=== PATIENT | female | born 1970 | race Caucasian/White ===

== ENCOUNTER 2018-09-05 00:45 | Outpatient (CLI) | payer MEDICAID, SELFPAY ==
[2018-09-05 12:38] LABS: Hemoglobin A1C 5.7 % (4.5-6.2)
--- NOTE | 2018-09-05 12:45 | DI.MAMMO_ITS ---
SYMPTOM/DIAGNOSIS: SCREENING, [facility], Z00.00 MAMMOGRAMS: Mammograms were interpreted according to the usual protocol including computer analysis with CAD system, tomosynthesis and C view imaging. Comparison is made with exams from [id number]. The breasts are composed of heterogeneously dense fibroglandular tissue, breast density, Category C. No suspicious masses or suspicious microcalcifications are seen. There has been no significant change. IMPRESSION: Category 1, negative mammogram. Yearly screening mammography is recommended. [facility] ASSESSMENT OF FINDINGS: Negative. Category 1. Patient will receive a letter notifying them of these results. Bi-RADS category C. The breasts are heterogeneously dense, which may obscure small masses.
[2018-09-05 15:07] LABS: Cholesterol 204 mg/dL (50-200); HDL Cholesterol 35 mg/dL (40-60); LDL CHOLESTEROL 138 mg/dL (<100); Triglyceride 165 mg/dL (30-150)
== END 2018-09-05 01:05 ==
PROVIDERS: PCP Physician Assistant Medical; Visit Provider Physician Assistant Medical
DX: Z12.31 Encounter for screening mammogram for malignant neoplasm of breast (principal); Z00.00 Encounter for general adult medical examination without abnormal findings; Z13.1 Encounter for screening for diabetes mellitus; Z13.220 Encounter for screening for lipoid disorders
CPT/HCPCS: 36415; 77063; 77067; 80061; 83721; 87338; 83036

== ENCOUNTER 2018-09-05 12:06 | Outpatient (REF) | payer MEDICAID, SELFPAY ==
[2018-09-07 12:40] LABS: Helicobacter pylori Ag, Feces Negative (NEGAT)
== END 2018-09-05 12:26 ==
LOC: LBN 12:06
PROVIDERS: PCP Physician Assistant Medical; Visit Provider Physician Assistant Medical
DX: K21.9 Gastro-esophageal reflux disease without esophagitis (principal)
CPT/HCPCS: 87338

== ENCOUNTER 2019-03-26 10:48 | Outpatient (CLI) | payer MEDICAID, SELFPAY ==
--- NOTE | 2019-03-26 10:32 | DI.RAD_ITS ---
EXAM: XR CHEST 2V PA LATERAL INDICATION: COUGH R05. COMPARISON: CHEST 2 VIEWS PA,LAT from 03/31/2015 TECHNIQUE: 2D digital imaging was performed. FINDINGS: The heart size and pulmonary vasculature are within normal limits. The lungs are clear. No pleural effusion or pneumothorax is identified. Mild DJD in the spine. IMPRESSION: No acute pulmonary process.
== END 2019-03-26 11:08 ==
PROVIDERS: PCP Physician Assistant Medical; Visit Provider Physician Assistant Medical
DX: R05 Cough (principal)
CPT/HCPCS: 71046

== ENCOUNTER 2019-12-10 01:06 | Outpatient (CLI) | payer MEDICAID, SELFPAY ==
--- NOTE | 2019-12-10 | DI.MAMMO_ITS ---
EXAM: MAMMO SCREENING CLINICAL HISTORY: SCREENING, [facility],Z00.00 TECHNIQUE: Mammograms were interpreted according to the usual protocol including computer analysis w [employer] CAD system, tomosynthesis and C-view imaging. COMPARISON: 2012 through 2018 FINDINGS: The breasts are composed of heterogeneously dense fibroglandular densities, Breast Density category C . No suspicious masses or suspicious microcalcifications are seen. No skin thickening or abnormal axillary lymph nodes are seen. There has been no significant change from prior exams. IMPRESSION: BI-RADS Category 1: Negative mammogram. Yearly screening mammography is recommended. Breast Density Category C, heterogeneously dense tissue which decreases the sensitivity of the mammog abdelrahman. The mammogram demonstrates the patient's breast tissue is dense. Dense breast tissue is very common a nd is not abnormal but dense breast tissue can make it harder to find cancer on a mammogram. Also, de nse breast tissue may increase breast cancer risk. This information about the result of the mammogram report was provided to the patient to raise their awareness. Use this report when you speak with the patient about their risks for breast cancer, which includes their family history. At that time, you may recommend additional screening tests (Ultrasound or MRI) as they might be useful based on their r isk. A negative radiographic report should not delay biopsy if a dominant or clinically suspicious mass is present. Up to ten percent of cancers are not identified on mammography. A negative report may reinforce clinical impression. Adenosis and dense breasts may obscure an underlying neoplasm. False positive reports average 6 to 10%.
== END 2019-12-10 01:26 ==
PROVIDERS: PCP Physician Assistant Medical; Visit Provider Physician Assistant Medical
DX: Z12.31 Encounter for screening mammogram for malignant neoplasm of breast (principal); R92.2 Inconclusive mammogram
CPT/HCPCS: 77063; 77067

== ENCOUNTER 2019-12-12 08:33 | Outpatient (REF) | payer MEDICAID, SELFPAY ==
[2019-12-12 22:17] LABS: Hemoglobin A1C 5.6 % (3.8-5.6)
[2019-12-12 22:34] LABS: Anion Gap 7.9 mmol/L (3-11); BUN 18 mg/dL (7-18); CO2 29.1 mmol/L (21.0-32.0); CREATININE 0.64 mg/dL (0.55-1.02); Calcium 9.2 mg/dL (8.5-10.1); Chloride 102 mmol/L (98-107); Glucose 96 mg/dL (74-106); Potassium 4.4 mmol/L (3.5-5.1); Sodium 139 mmol/L (136-145); TSH (W/Ref FT4) 1.36 uIU/mL (0.36-3.74)
== END 2019-12-12 08:53 ==
LOC: NCHCN 08:33
PROVIDERS: PCP Physician Assistant Medical; Visit Provider Physician Assistant Medical
DX: Z00.00 Encounter for general adult medical examination without abnormal findings (principal); R60.0 Localized edema; R73.03 Prediabetes
CPT/HCPCS: 80048; 83036; 84443

== ENCOUNTER 2020-03-20 16:26 | Outpatient (REF) | payer MEDICAID, SELFPAY | END 2020-03-20 16:46 | LOC: NCHCN 16:26 | PROVIDERS: PCP Physician Assistant Medical; Visit Provider Family Medicine | DX: R30.0 Dysuria (principal) | CPT/HCPCS: 87086 ==

== ENCOUNTER 2020-09-18 10:42 | Outpatient (CLI) | payer MEDICAID, SELFPAY ==
--- NOTE | 2020-10-21 08:48 | W.CARDEVENT ---
Date of service: 10/21/20 Time of Service: 08:48 Cardiac Event Recorder Referring Provider:: Tasha Indications:: Palps Cardiac Event Note: This is a 30-day event recorder order for indication of palpitations. Total recording time was 18 days. ?The patient was in normal sinus rhythm for the majority of the recording with an average heart rate of 87 bpm ?There were no episodes of ventricular tachycardia, no episodes of atrial fibrillation, no pauses greater than 3 seconds and no evidence of high degree heart block. ?There were 24 patient triggered events all associated with sinus rhythm, sinus tachycardia and occasional PACs.
== END 2020-09-18 10:43 | disposition home or self-care (01) ==
LOC: RT 10:53
PROVIDERS: PCP Physician Assistant Medical; Visit Provider Nurse Practitioner Family
DX: R00.2 Palpitations (principal)

== ENCOUNTER 2020-12-15 13:33 | Outpatient (REF) | payer MEDICAID, SELFPAY ==
--- NOTE | 2020-12-15 08:30 | PAPFT_PTH ---
PATIENT: Elizabeth Henderson LOC: [facility]#:[id number] AGE/SX: 50/F ROOM: RE12/15/[address]: Sergey Brewer : 1970 BED: DIS: 12/15/2020 SPEC #: [id number] RECD: 12/15/20 17:42 STATUS: JUICE REAlden #: [id number] APRIL: 12/15/20 08:[address]: Sergey Brewer DEPT: ON LICENSE OF [facility] Cytology RECD BY: Caitlin Nance Tissues: 1 - CX/ENDOCX FOR PAP SMEARS Procedures: PAP THIN PREP/[facility] Screening HPV DNA PROBE Comments: [id number]
== END 2020-12-15 13:34 | disposition home or self-care (01) ==
LOC: NCHCN 13:33
PROVIDERS: PCP Physician Assistant Medical; Visit Provider Physician Assistant Medical
DX: Z12.4 Encounter for screening for malignant neoplasm of cervix (principal); Z11.51 Encounter for screening for human papillomavirus (HPV)
CPT/HCPCS: 88142; 87624

== ENCOUNTER 2021-01-02 02:17 | Outpatient (CLI) | payer MEDICAID, SELFPAY ==
[2021-01-02 12:48] LABS: Abs Immature Grans 0.04 10^3/uL (0.0-0.06); Absolute Basophil Count 0.06 10^3/uL (0.0-0.2); Absolute Eosinophil Count 0.13 10^3/uL (0.0-0.7); Absolute Lymphocyte Count 3.41 10^3/uL (1.2-3.4); Absolute Monocyte Count 0.45 10^3/uL (0.1-0.8); Absolute Neutrophil Count 5.29 10^3/uL (1.2-6.7); Basophils % 0.6; Eosinophils % 1.4; HCT 38.5 % (36.0-46.0); HGB 12.6 g/dL (11.2-15.7); Immature Grans % 0.4; Lymphocytes % 36.4; MCH 28.6 pg (27.0-33.0); MCHC 32.7 % (32.0-36.0); MCV 87.5 fL (80-95); MPV 10.6 fL (8.0-11.0); Monocytes % 4.8; Neutrophils % 56.4; Nucleated RBC 0 %; Platelet Count 251 10^3/uL (130-400); RDW 12.5 % (11.7-14.6); RDW-SD 39.8 fL; WBC 9.38 10^3/uL (4.4-10.8)
[2021-01-02 13:02] LABS: Hemoglobin A1C 5.6 % (<5.7)
[2021-01-02 14:47] LABS: Calculated LDL 165 mg/dL (<100); Cholesterol 240 mg/dL (<200); HDL Cholesterol 46 mg/dL (40-60); Triglyceride 148 mg/dL (<150)
== END 2021-01-02 02:18 | disposition home or self-care (01) ==
LOC: LBO 02:17
PROVIDERS: PCP Physician Assistant Medical; Visit Provider Physician Assistant Medical
DX: D64.9 Anemia, unspecified (principal); R06.02 Shortness of breath; R07.9 Chest pain, unspecified; R00.2 Palpitations; R79.89 Other specified abnormal findings of blood chemistry
CPT/HCPCS: 36415; 80061; 83036; 85025

== ENCOUNTER 2021-01-02 04:04 | Outpatient (CLI) | payer MEDICAID, SELFPAY ==
--- NOTE | 2021-01-02 | DI.MAMMO_ITS ---
Exam(s) MAMMO SCREENING EXAM: MAMMO SCREENING CLINICAL HISTORY: SCREENING, [facility],Z00.00 TECHNIQUE: Bilateral full field digital CC and MLO mammographic images were obtained with 3D tomosyn thesis and utilizing computer aided detection (CAD). COMPARISON: Available for comparison. FINDINGS: Masses/Architectural Distortion: None seen. Microcalcifications: No suspicious pleomorphic-type are seen. Skin Thickening/Nipple Retraction: None. IMPRESSION: 1. No significant interval change with no specific features of malignancy noted. 2. Unless there is more urgent need, screening mammography is recommended, as per [place] [employer] guidelines. BI-RADS Category 1 - Negative Breast Density - Category C - Heterogeneously dense Breast density category C or D implies that the patient has dense breast tissue. Dense breast tissue is very common and is not abnormal but dense breast tissue can make it harder to find cancer on a ma mmogram. Also, dense breast tissue may increase their breast cancer risk. This information about the result of the mammogram report was provided to the patient to raise their awareness. Use this report when you speak with the patient about their risks for breast cancer, which includes their family hist ory. At that time, you may recommend for more screening tests (Ultrasound or MRI) as they might be us eful based on their risk. A negative radiographic report should not delay biopsy if a dominant or clinically suspicious mass is present. Up to ten percent of cancers are not identified on mammography. A negative report may reinforce clinical impression. Adenosis and dense breasts may obscure an underlying neoplasm. False positive reports average 6 to 10%. Patient will receive a letter notifying them of these results.
== END 2021-01-02 04:24 ==
PROVIDERS: PCP Physician Assistant Medical; Visit Provider Physician Assistant Medical
DX: Z12.31 Encounter for screening mammogram for malignant neoplasm of breast (principal)
CPT/HCPCS: 77063; 77067

== ENCOUNTER 2021-04-08 09:59 | Outpatient (REF) | payer MEDICAID, SELFPAY ==
[2021-04-11 11:05] LABS: COVID-19 RT-PCR UVMMC Result Negative (Negative)
== END 2021-04-08 10:00 | disposition home or self-care (01) ==
LOC: NCHCN 09:59
PROVIDERS: PCP Physician Assistant Medical; Visit Provider Physician Assistant Medical
DX: Z20.822 Contact with and (suspected) exposure to COVID-19 (principal); R05.8 Other specified cough
CPT/HCPCS: U0003

== ENCOUNTER 2021-10-17 13:53 | Emergency (ER) | payer BC, SELFPAY ==
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
[2021-10-17 13:57] VITALS: BP 139/87; PULSE 105; TEMP 36.9; O2SAT 95
[2021-10-17] MEDS: Silver sulfaDIAZINE 1% 25 GM TUBE TP (14:23)
[2021-10-17] MEDS: Ibuprofen 600 MG TAB PO (14:42)
[2021-10-17] MEDS: Acetaminophen 500 MG TAB 1000 MG PO (14:42)
== END 2021-10-17 14:33 | disposition home or self-care (01) ==
PROVIDERS: Emergency Provider Physician Assistant; PCP Physician Assistant Medical
DX: T21.22XA Burn of second degree of abdominal wall, initial encounter (principal); X10.2XXA Contact with fats and cooking oils, initial encounter
CPT/HCPCS: 99282

== ENCOUNTER 2021-11-23 15:03 | Outpatient (REF) | payer BC, MEDICAID, SELFPAY | END 2021-11-23 15:04 | disposition home or self-care (01) | LOC: NCHCN 15:03 | PROVIDERS: PCP Physician Assistant Medical; Visit Provider Nurse Practitioner Family | DX: J02.9 Acute pharyngitis, unspecified (principal); U07.1 COVID-19 | CPT/HCPCS: 87081 ==

== ENCOUNTER → 2022-01-05 01:44 | Outpatient (CLI) | payer BC, MEDICAID, SELFPAY ==
--- NOTE | 2022-01-05 | DI.MAMMO_ITS ---
Exam(s) MAMMO SCREENING EXAM: MAMMO SCREENING CLINICAL HISTORY: SCREENING FOR BREAST CANCER Z12.39 TECHNIQUE: Mammograms were interpreted according to the usual protocol including computer analysis w [employer] CAD system, tomosynthesis and C-view imaging. COMPARISON: FINDINGS: The breasts are heterogeneously dense. No dominant mass or clumped microcalcification is identified in either breast. The current examination is compared with multiple previous examinations including December 2020 and there is question of interval increased prominence of a focal area of asymmetric dens ity projected in the upper outer quadrant of left breast on CC and MLO views. Additional mammographi c views of this area are requested for further evaluation to exclude a new mass. No other significant change seen. Additional mammographic view should include spot compression views in CC and MLO projections. IMPRESSION: Additional mammographic views of the left breast requested as described above. Breast ultrasound may be indicated as well depending on the results of the additional mammographic views. BI-RADS Category 0 - Assessment Incomplete: Need additional imaging evaluation Breast Density - Category C - Heterogeneously dense
== END ==
PROVIDERS: PCP Physician Assistant Medical; Visit Provider Physician Assistant Medical
DX: Z12.31 Encounter for screening mammogram for malignant neoplasm of breast (principal); R92.8 Other abnormal and inconclusive findings on diagnostic imaging of breast
CPT/HCPCS: 77063; 77067

== ENCOUNTER → 2022-01-08 00:19 | Outpatient (CLI) | payer BC, MEDICAID, SELFPAY ==
--- NOTE | 2022-01-08 | DI.US_ITS ---
Exam(s) MAMMO SCREEN CALL BACK UNI US BREAST LT COMPLETE EXAM: MAMMO SCREEN CALL BACK UNI-LEFT AND COMPLETE LEFT BREAST ULTRASOUND CLINICAL HISTORY: F/U MAMMO, ? INCREASED PROMINENCE ASYMMETRIC DENSITY. TECHNIQUE: Unilateral spot mammographic images obtained with 3D tomosynthesisand utilizing computer aided detection (CAD). . Complete LEFT breast Ultrasound was also performed, including all 4 quadrants, the retroareolar regio n, and the ipsilateral axilla. COMPARISON: Prior mammograms were reviewed. This additional imaging was performed due to findings described on the recent screening mammogram of 01/05/2022. FINDINGS: DIAGNOSTIC LEFT BREAST MAMMOGRAM: Additional mammographic views performed todayrender this area less concerning. COMPLETE LEFT BREAST ULTRASOUND: Ultrasound performed today reveals no evidence of solid or significant cystic lesions in all 4 quadra nts.. Retroareolar region is negative. No significant findings in the left axilla. No adenopathy. IMPRESSION: No radiographic evidence of malignancy in the left breast.. Negative complete left breast ultrasound. Appropriate follow-up is to keep this patient on a yearly mammogram schedule, with earlier imaging i f a self detected breast change was noted.. The patient was informed of these findings and recommendations by myself prior to leaving the departm ent today. BI-RADS Category 2 - Benign Findings Breast Density - Category C - Heterogeneously dense Breast density Category C or D implies that the patient has dense breast tissue. Dense breast tissue can make it harder to find cancer on a mammogram. Dense breast tissue is also associated with an incr eased risk of breast cancer. This information about the result of the mammogram report was provided to the patient to raise their awareness. Use this report when you speak with the patient about their risks for breast cancer, which includes their family history. At that time, you may recommend additional screening tests (Ultrasoun d or MRI) as these tests may add significant information. A negative radiographic report should not delay biopsy if a dominant or clinically suspicious mass is present. Up to ten percent of cancers are not identified on mammography. A negative report may reinforce clinical impression. Adenosis and dense breasts may obscure an underlying neoplasm. False positive reports average 6 to 10%. Patient will receive a letter notifying them of these results.
--- OUTSIDE RECORDS SUMMARY | 2022-01-08 00:21 | XMS_ITS | Encounter Summary ---
:1970 [place] [address] Care Team Providers Name Role Phone None Primary Care Provider Unavailable Encounter Details Date Type Department Care Team Description 08/23/2018 Ancillary Procedure Radiology Library at Oliver Cope MD [facility] [place] [address] [place] [address] [phone] (Wo rk) Social History Tobacco Use Types Packs/Day Years Used Date Never Assessed Sex Assigned at Date Recorded Not on file documented as of this encounter Plan of Treatment Not on filedocumented as of this encounter Procedures Procedure Name Priority Date/Time Associated Diagnosis Comme nts FILM LIBRARY Routine 08/23/2018 12:00 AM Results for this STORAGE ONLY CT EDT procedure ar e in ABDOMEN AND PELVIS the resul ts section. documented in this encounter Results Film Library- Storage Only CT Abdomen & Pelvis (08/23/2018 12:00 AM EDT) Specimen (Source) Anatomical Location Collection Method / Collectio n Time Received Time / Laterality Volume Narrative RAD - 09/11/2018 1:30 PM EDT This exam is auto-finalizing. It's purpo se is for storage only. Oliver Cope MD IMG FILM LIBRARY ORDERABLES Performing Organization Address City/State/ZIP Code Phon e Number RAD [place], [place] documented in this encounter Visit Diagnoses Not on filedocumented in this encounter Care Teams Cork Floor Installer Relationship Specialty Start Date End Date None PCP - General 04/07/10 08/27/18 None documented as of this encounter
--- OUTSIDE RECORDS SUMMARY | 2022-01-08 00:21 | XMS_ITS | Encounter Summary ---
:1970 Author Organization [facility] [place] [address] Care Team Providers Name Role Phone Sergey Brewer Primary Care Provider Encounter Details Date Type Department Care Team Description 11/21/2018 Telephone General Surgery at [facility] [place] [address] Social History Tobacco Use Types Packs/Day Years Used Date Never Smoker Smokeless Tobacco: Never Used Alcohol Use Standard Drinks/Week Comments Not Currently 0 (1 standard drink = 0.6 oz pure alcoho l) Sex Assigned at Date Recorded Not on file documented as of this encounter Miscellaneous Notes Telephone Encounter - Alecia Stroud - 11/21/2018 4:08 PM EDT At the request of Dr. Cope, I contacted Ms. Henderson to schedule her follow up visit within 4 weeksfrom the EGD performed on 11/17/18. She has accepted an appointment on 12/15/18 at 4:45p but did requestthat I ask Dr. Cope to contact her prior to his upcoming time away to discuss the EGD path results.Ms. Henderson states that she was a bit out of it when Dr. Cope spoke with her on Tuesday and she does not quite recall what he had said to her. Emailed Dr. Cope informing him of the above. documented in this encounter Plan of Treatment Not on filedocumented as of this encounter Visit Diagnoses Not on filedocumented in this encounter Care Teams Big Data Software Engineer Relationship Specialty Start Date End Date Sergey Brewer PA PCP - General Family Medicine 08/28/18 01/01/20 [address] [place] [address] documented as of this encounter
--- OUTSIDE RECORDS SUMMARY | 2022-01-08 00:21 | XMS_ITS | Encounter Summary ---
:1970 Author Organization [facility] [place] [address] Care Team Providers Name Role Phone Sergey Brewer Primary Care Provider Encounter Details Date Type Department Care Team Description 09/28/2018 Telephone General Surgery at [facility] [place] [address] Social History Tobacco Use Types Packs/Day Years Used Date Never Smoker Sex Assigned at Date Recorded Not on file documented as of this encounter Miscellaneous Notes Telephone Encounter - Alecia Stroud - 09/28/2018 11:32 AM EDT Called and left a message informing Elizabeth that I have rescheduled her EGD with Dr. Cope from November 24 7:30a arrival time to November 17 7:30a arrival time as Dr. Cope is going to be awayJuly 12th. Requested she call us back to confirm receipt of this message. documented in this encounter Plan of Treatment Not on filedocumented as of this encounter Visit Diagnoses Not on filedocumented in this encounter Care Teams Operating Room Scheduler Relationship Specialty Start Date End Date Sergey Brewer PA PCP - General Family Medicine 08/28/18 01/01/20 [address] [place] [address] documented as of this encounter
--- OUTSIDE RECORDS SUMMARY | 2022-01-08 00:21 | XMS_ITS | Encounter Summary ---
:1970 Author Organization [facility] [place] [address] Care Team Providers Name Role Phone Sergey Brewer Primary Care Provider Reason for Visit Reason Comments Follow-up Consultation (Routine) - Specialty Diagnoses / Procedures Referred By Contact Refer red To Contact General Surgery Diagnoses GERD Ventral hernia Sergey Brewer, [facility] [facility] [address] [place] [address] [place] [address] Fax: Referral ID Status Reason Start Date Expiration Date Visits V isits Requested Authorized [id number] Consult, 08/28/2018 08/28/2019 6 [facility] Encounter Details Date Type Department Care Team Description 09/18/2018 Office Visit General Surgery at Oliver Cope MD Chronic epigastric [facility] pain [facility] [address] [facility] [place], [place] [id number] [phone] Social History Tobacco Use Types Packs/Day Years Used Date Never Smoker Sex Assigned at Date Recorded Not on file documented as of this encounter Last Filed Vital Signs Vital Sign Reading Time Taken Comments Blood Pressure 126/62 09/18/2018 10:55 AM EDT Pulse - - Temperature - - Respiratory Rate - - Oxygen Saturation - - Inhaled Oxygen Concentration - - Weight 112.5 kg (248 lb) 09/18/2018 10:55 AM EDT Height - - Body Mass Index - - documented in this encounter Progress Notes Glen Anaya MD - 09/18/2018 11:00 AM EDT Elizabeth Henderson is a 48 y.o. female who presents to clinic today for evaluation of intermittent epigastric pain, reflux, and ventral hernia. Ms. Henderson reports that she has had episodes of epigastricpain for the past 2-3 years. These episodes are often accompanied by acid reflux. She was seen in her local ED in May and twice in the past month. She was initially given ranitidine which helped. She had multiple side effects from this medication that limited her use. She has been on a bland diet.She was seen in the ED last week for an episode of this pain and started on pantoprazole. She reports that she has had no issues since starting this medication and feels generally much better. She underwent H pylori testing that was negative. She has never had endoscopy. She denies current reflux or pain. She denies fevers, chills, SOB, chest pains, nausea, vomiting, constipation, diarrhea, melena, or hematochezia. Past Medical History: Diagnosis Date ??? GERD (gastroesophageal reflux disease) Past Surgical History: Procedure Laterality Date ??? CHOLECYSTECTOMY, LAPAROSCOPIC ??? TOTAL KNEE ARTHROPLASTY Bilateral ??? TUBAL LIGATION Medications <Not Reviewed> Medication Sig Taking? pantoprazole (PROTONIX) 40 mg Tablet, Delayed Release (E.C.) Allergies Allergen Reactions ??? Codeine Shortness Of Breath ??? Morphine Shortness Of Breath ??? Amoxicillin Rash ??? Demerol [Meperidine] Rash ??? Keflex [Cephalexin] Rash ??? Nexium [Esomeprazole Magnesium] Other (See Comments) Tongue gets Ezra ??? Ranitidine Other (See Comments) tongue gets tingly Social History Tobacco Use ??? Smoking status: Never Smoker Substance Use Topics ??? Alcohol use: Not on file ??? Drug use: Never History reviewed. No pertinent family history. ROS:Pertinent items are noted in HPI. On physical examination today, BP 126/62 Wt 112.5 kg (248 lb) There is no height or weight on fileto calculate BMI. General appearance: alert, appears stated age, cooperative and no distress Head: Normocephalic, without obvious abnormality, atraumatic Lungs: clear to auscultation bilaterally Heart: regular rate and rhythm, S1, S2 normal, no murmur, click, rub or gallop Abdomen: soft, non-tender; bowel sounds normal; no masses, no organomegaly and , small diastasis without discrete hernia Extremities: no edema, redness or tenderness in the calves or thighs and warm, well-perfused Skin: Skin color, texture, turgor normal. No rashes or lesions Neurologic: Grossly normal CT Abdomen pelvis 08/23/18: reviewed, no evidence of hernia or discrete abnormality to explain her symptoms. Assessment and Plan: Elizabeth Henderson is a 48 y.o. female. with a history of GERD who presents with intermittent severe epigastric pain. She has no clear hernia on imaging or exam to explain her symptoms. She primarily described incompletely controlled episodes of reflux which has responded well to recently started PPI. We discussed at length the options for ongoing work up and management of her symptoms. She has been restricting her diet to an extreme that may not be sustainable. Recommended keepinga journal of what foods are problematic as she slowly expands her diet. She is tolerating pantoprazole better than ranitidine. Recommended taking this medication regularly for 6-8 weeks to measure response to treatment. We discussed the role of diagnostic EGD to evaluate for any inflammation or ulcer disease (although less likely) to explain her symptoms. She would like to pursue EGD and was agreeable to the plan for ongoing PPI in the interim. She will call with and questions or concerns in the interim. Patient seen and examined by me. I agree with above note as written by Dr. Anaya. Will arrange EGD diagnostic in the near future. Ms. Henderson is in agreement with this plan. Oliver Cope MD #[id number] documented in this encounter Plan of Treatment Not on filedocumented as of this encounter Visit Diagnoses Diagnosis Chronic epigastric pain Abdominal pain, epigastric documented in this encounter Care Teams Water Pump Servicer Relationship Specialty Start Date End Date Sergey Brewer PA PCP - General Family Medicine 08/28/18 01/01/20 [address] [place] [address] documented as of this encounter
--- OUTSIDE RECORDS SUMMARY | 2022-01-08 00:21 | XMS_ITS | Encounter Summary ---
:1970 Author Organization [facility] Address [address] [place] [address] Care Team Providers Name Role Phone Unknown, Provider Primary Care Provider Encounter Details Date Type Department Care Team Description 10/03/2013 Hospital Encounter [facility] - S Unknown, Pro Sam high MD [address] [facility] [phone] [place] [address] (Work) [phone] Social History Tobacco Use Types Packs/Day Years Used Date Never Assessed Sex Assigned at Date Recorded Not on file documented as of this encounter Discharge Disposition Disposition Code Departure Means Destination Home or Self Penitentiary documented in this encounter Plan of Treatment Not on filedocumented as of this encounter Visit Diagnoses Not on filedocumented in this encounter Care Teams Airline Attendant Relationship Specialty Start Date End Date Unknown, Provider, PCP - General 09/05/09 10/17/13 documented as of this encounter
--- OUTSIDE RECORDS SUMMARY | 2022-01-08 00:21 | XMS_ITS | Encounter Summary ---
:1970 Author Organization [facility] Address [address] [place] [address] Care Team Providers Name Role Phone Sergey Brewer PA-C Primary Care Provider [phone] Encounter Details Date Type Department Care Team Description 04/09/2021 Lab [facility] Outr Resulting Lab, Pathology & Laboratory Provider [facility] [address] [place], [place] [id number] Social History Tobacco Use Types Packs/Day Years Used Date Never Assessed Sex Assigned at Date Recorded Not on file documented as of this encounter Plan of Treatment Not on filedocumented as of this encounter Procedures Procedure Name Priority Date/Time Associated Diagnosis Comme nts COVID-19 TEST [facility] Today 04/08/2021 9:35 EST LAB PCR COVID-19 TESTING Routine 04/08/2021 9:35 EST Resu lts for this procedure are i n the results section. documented in this encounter Results COVID-19 TEST [facility] LAB PCR (04/08/2021 9:35 EST) Specimen Swab Performing Organization Address City/State/ZIP Code Phon e Number [facility] [address] [place] [address] SERVICES COVID-19 TESTING (04/08/2021 9:35 EST) COVID-19 rt-PCR Negative Negative [facility] Result Comment: [facility] This test has not been FDA c leared or approved. This test has been authorized by FDA under an EUA for use by authorized laboratories. This test has been authorized only for detection of nucleic acid fro SERVICES m 2019-nCoV, not for any oth er viruses or pathogens. This test is only authorized for the duration of the declaration that circumstances exist justifying the authorization of emergency use of in vitro d iagnostic tests for detectio n and/or diagnosis of 2019-nCoV under section 564(b)(1) of Act, 21 U.S.C ?? 360bbb-3(b) (1), unless the authorization is terminated or revoked sooner. Negative results do not prec lude 2019-nCoV infection and should not be used as the sole basis for treatment or other patient management decisions. Negative results must be combined with clinical observa tions, patient history, and epidemiological informatio n. Testing was performed using the fer SARS-CoV-2 assay ([employer] on the Fer 6800 System Performing Lab Fer [address] [facility] Lab [facility] SERVICES Specimen Swab Performing Organization Address City/State/ZIP Code Phon e Number [facility] [address] [place] [address] SERVICES documented in this encounter Visit Diagnoses Not on filedocumented in this encounter Care Teams Crab Meat Processor Relationship Specialty Start Date End Date Sergey Brewer PA-C PCP - General 06/10/[address] [place] [phone] documented as of this encounter
--- OUTSIDE RECORDS SUMMARY | 2022-01-08 00:21 | XMS_ITS | Encounter Summary ---
:1970 Author Organization [facility] Address [address] [place] [address] Care Team Providers Name Role Phone Unavailable Primary Care Provider Unavailable Encounter Details Date Type Department Care Team Description 06/04/[address] [facility] Anne Brewer, Laboratory Services - Reba MARQUES [address] [address] [place] [address] [phone] Social History Tobacco Use Types Packs/Day Years Used Date Never Assessed Sex Assigned at Date Recorded Not on file documented as of this encounter Plan of Treatment Not on filedocumented as of this encounter Procedures Procedure Name Priority Date/Time Associated Diagnosis [facility]me [facility] CY[facility]Y Routine 06/04/2009 0:00 EST Results for this procedure are i n the results section . documented in this encounter Results CYTOPATHOLOGY (06/04/2009 0:00 EST) Pathology Report: CYTOPATHOLOGY REPORT ? [facility] ? LAB Reports generated via electr onic interface contain original data; ? however they are lacking the format of the original report. ? Caution should be taken when reading/interpreting unformatted reports. ? Name: ? VERITO, ELIZABETH ? Accession #: ? [id number] ? : ? 1970 (Age: 39) ??F ?Collect Date: ? 06/04/2009 ? Location: ? [facility] ? Receive Date: ? 06/05/2009 ? Provider: ?ANNE REDDING PA ? Copy to: ? Specimen/Source: ? Pap Test, Cervix/Endocervix, ThinPrep Imaging System ? with manual evaluation ? Last Menstrual Period: ? 1/8/10 ? Other: ? HPVA - HPV testing requested if ASC-US on the current ThinPrep Pap test. ? SPECIMEN ADEQUACY ? Satisfactory for Eval uation ? - transformation zone compon ent present ? GENERAL CATEGORIZATION ? Negative for Intraepi thelial Lesion or Malignancy ? Document reviewed and electr onically signed by: ? Melany V[place],CT(ASCP) ? Report Date: ??01/22/ 2010 12:55 ? End of Report ? Specimen Performing Organization Address City/State/ZIP Code Phon e Number [facility] [address] [place] [address] SERVICES [facility] [address] [place] [address] documented in this encounter Visit Diagnoses Not on filedocumented in this encounter
--- OUTSIDE RECORDS SUMMARY | 2022-01-08 00:21 | XMS_ITS | Encounter Summary ---
:1970 [place] [address] Care Team Providers Name Role Phone Sergey Brewer Primary Care Provider Encounter Details Date Type Department Care Team Description 11/17/2018 [place] [facility] [place] Cabrera MD EGD WITH BIOPSY ([facility] [address]) [place] [address] [address] [address] [phone] GENERAL SURGERY [place], [place] [address] Social History Tobacco Use Types Packs/Day Years Used Date Never Smoker Smokeless Tobacco: Never Used Alcohol Use Standard Drinks/Week Comments Not Currently 0 (1 standard drink = 0.6 oz pure alcoho l) Sex Assigned at Date Recorded Not on file documented as of this encounter Last Filed Vital Signs Vital Sign Reading Time Taken Comments Blood Pressure 138/80 11/17/2018 8:50 AM EDT Pulse 81 11/17/2018 8:54 AM EDT Temperature 36.8 ??C (98.2 ??F) 11/17/2018 7:41 AM EDT Respiratory Rate 11 11/17/2018 8:54 AM EDT Oxygen Saturation 100% 11/17/2018 8:54 AM EDT Inhaled Oxygen Concentration - - Weight 106.6 kg (235 lb) 11/17/2018 7:41 AM EDT Height 162.6 cm (5' 4) 11/17/2018 7:41 AM EDT Body Mass Index 40.34 11/17/2018 7:41 AM EDT documented in this encounter Discharge Instructions Discharge InstructionsJeinnings, Joy L, RN - 11/17/2018 9:03 AM EDT Please call [phone] before 8pm Mon-Fri with problems, questions or concerns. If you call after 8pm or on weekends, call the Hospital at [phone] and ask to speak to the Presentation Manager child welfare consultant and the asphalt still operator will contact that person for you. AttachmentsThe following attachments cannot be sent through Care Everywhere.EGD (Upper Endoscopy): Post-op (Kazakh)documented in this encounter Medications at Time of Discharge Medication Sig Dispensed Refills Start Date End Date pantoprazole (PROTONIX) 40 mg Tablet, 0 09/13/2018 12/15/2018 Delayed Release (E.C.) documented as of this encounter H&P Notes Oliver Cabrera MD - 11/17/2018 8:24 AM EDT Patient Name: Elizabeth Henderson Patient Age: 48 y.o. Birthdate: 1970 Admit date: 11/17/2018 Attending Physician: Oliver Cabrera MD Ms. Henderson is here today for planned EGd. She continues to feel improved now taking PPI therapy PRN. On exam, BP 129/78 Pulse 65 Temp 36.8 ??C (98.2 ??F) (Oral) Resp 16 Ht 162.6 cm (5' 4) Wt106.6 kg (235 lb) LMP 10/23/2018 SpO2 99% BMI 40.34 kg/m?? Lungs are clear. Heart is regular. Assessment/Plan: Ms. Henderson is stable for our planned EGd procedure. Consent is obtained. documented in this encounter Plan of Treatment Not on filedocumented as of this encounter Procedures Procedure Name Priority Date/Time Associated Diagnosis Comme nts SPECIMEN TO Routine 11/17/2018 8:53 AM Results f or this PATHOLOGY EDT procedure are i n the results section. SPECIMEN TO Routine 11/17/2018 8:53 AM Results f or this PATHOLOGY EDT procedure are i n the results section. SURGICAL PATHOLOGY Routine 11/17/2018 8:52 AM Res ults for this REPORT EDT procedure are i n the results section. EGD WITH BIOPSY 11/17/2018 8:30 AM epigastric (WRVU 2.49) EDT pain/reflux UPPER GI ENDOSCOPY Routine 11/17/2018 7:36 AM Res ults for this EDT procedure are i n the results section. documented in this encounter Results Specimen to Pathology (11/17/2018 8:53 AM EDT) Specimen Anatomical Collection Method Collection Time Receive d Time (Source) Location / / Volume Laterality AP Specimen 11/17/2018 8:53 AM 9 8:53 EDT AM EDT Narrative [facility] [place] - 11/17/2018 8:53 AM EDT Specimen requisition ordered. ??Separate Pathology report to follow Oliver Cabrera MD PATHOLOGY/CYTOLOGY ORDERABLE S Performing Organization Address [facility]/ZIP [place] [facility] [place] [place] Phon e Number [address] Specimen to Pathology (11/17/2018 8:53 AM EDT) Specimen Anatomical Collection Method Collection Time Receive d Time (Source) Location / / Volume Laterality AP Specimen 11/17/2018 8:53 AM 9 8:53 EDT AM EDT Narrative [facility] [place] - 11/17/2018 8:53 AM EDT Specimen requisition ordered. ??Separate Pathology report to follow Oliver Cabrera MD PATHOLOGY/CYTOLOGY ORDERABLE S Performing Organization Address [facility] [place] [address] Surgical Pathology Report (11/17/2018 8:52 AM EDT) Component Value Ref Test Analysis Performed At [facility] gist Range Method Time Signature Surgical [id number] ? Location: 4T; EA06; A [facility] Report The signing pathologist has (i) examined the relevant preparation(s) for the MEMORIAL specimen(s) and (ii) rendered or confirmed the diagnosis(es) . HOSPITAL LABORATORY . ?Surgic al Pathology DIAGNOSIS A - Gastric antrum, biopsy: Gastric antral gland mucosa with mild nonspecific reactive g astropathy. No H. pylori-like microorganism is seen. B - Z-line, biopsy: Squamous esophageal and cardiac mucosa with chronic nonspeci fic gastritis. No goblet cell metaplasia is seen. Electronically signed by: ??Deedee Zamorano MD Verified: ??11/20/2018 ?Pathologist Performed at: ??-[facility] [place] Dept. [place], [place], [place] CLINICAL INFORMATION Specimen Submitted: A - Gastric antrum biopsy B - Z-line biopsies, rule out Fitch's esophagus Clinical History and Diagnosis: 48-year-old female, history of epigastric abdominal pa in; rule out Fitch's esophagus SPECIMEN PROCESSING A - Labeled/Fixative: Gastric antrum, formalin. Quantity/Size: Single, 0.4 cm. Tissue Description: Soft, red tissue. Sections/Processing: Submitted en toto ??in 1 cassette labeled A1. B - Labeled/Fixative: Z line biopsies, formalin. Quantity/Size: Single, 0.3 cm. Tissue Description: Soft, yellow tissue. Sections/Processing: Submitted en toto ??in 1 cassette labeled B1. ??ejr Specimen (Source) Anatomical Collection Method Collection Time Re ceived Time Location / / Volume Laterality 11/17/2018 8:52 AM EDT Oliver Cabrera MD PATHOLOGY/CYTOLOGY ORDERABLE S Performing Organization Address City/State/[place] [address] [facility] [address] UPPER GI ENDOSCOPY (11/17/2018 7:36 AM EDT) Component Value Ref Test Analysis Performed At [facility] gist Range Method Time Signature UPPER GI [facility] ENDOSCOPY Endoscopy Procedure Date: 11/17/2018 7:36 AM ? Patient Name: Elizabeth Henderson ? Date of : 1970 ? Age: 48 ? Order #: [id number] ? Instrument Name: [id number] (RUDY) ? Procedure: ? Upper GI endoscopy Indications: ? Epigastric abdominal pain, Heartbur n Providers: ? Oliver Cabrera MD, Katya Connor, ? Sen Palumbo, Snack Bar Cook Referring : ?CAMI Saab Medicines: ? Midazolam 4 mg IV, Fentanyl 100 ? micrograms IV Complications: ? No immediate complications. Estimate d ? blood loss: Minimal. Procedure: ? Pre-Anesthesia Assessment: ? - Prior to the procedure, a H istory ? and Physical was performed, a nd ? patient medications and aller gies ? were reviewed. The patient is ? competent. The risks and bene fits of ? the procedure and the sedatio n ? options and risks were discus sed with ? the patient. All questions we re ? answered and informed consent was ? obtained. Patient identificat ion and ? proposed procedure were verif ied by ? the physician in the pre-proc edure ? area. Mental Status Examinati on: ? alert and oriented. Airway ? Examination: Mallampati Class I ? (tonsillar pillars visualized ). ? Respiratory Examination: ulisses r to ? auscultation. CV Examination: normal. ? Prophylactic Antibiotics: The patient ? does not require prophylactic ? antibiotics. Prior Anticoagul ants: ? The patient has taken no prev ious ? anticoagulant or antiplatelet agents. ? ASA Grade Assessment: II - A patient ? with mild systemic disease. A fter ? reviewing the risks and benef its, the ? patient was deemed in satisfa ctory ? condition to undergo the proc edure. ? The anesthesia plan was to us e ? moderate sedation / analgesia ? (conscious sedation). Immedia tely ? prior to administration of ? medications, the patient was ? re-assessed for adequacy to r eceive ? sedatives. The heart rate, ? respiratory rate, oxygen satu rations, ? blood pressure, adequacy of p ulmonary ? ventilation, and response to care ? were monitored throughout the ? procedure. The physical statu s of the ? patient was re-assessed after the ? procedure. ? The procedure, indications, b enefits, ? risks and alternatives were e xplained ? to the patient. Specifically ? discussed were potential ? complications including, but not ? limited to, bleeding, perfora tion, ? infection, missing a cancer, and ? adverse medication reactions. The ? Endoscope was introduced thro ugh the ? mouth, and advanced to the se cond ? part of duodenum. The patient ? tolerated the procedure well. The ? upper GI endoscopy was accomp lished ? without difficulty. The patie nt ? tolerated the procedure well. ? Findings: ? The Z-line was irregular and was found 39 cm from the ? incisors. Biopsies were taken with a cold forceps for ? histology. ? There was a small lipoma, 10 mm in diameter, in the ? gastric antrum. Biopsies were taken with a cold ? forceps for histology. Estimated blood loss was ? minimal. ? Moderate Sedation: ? Moderate (conscious) sedation was administered by the ? endoscopy nurse and supervised by the endoscopist. ? The following parameters were monitored: oxygen ? saturation, heart rate, blood pressure, and response ? to care. Impression: ?- Z-line irregular, 39 cm from the ? incisors. Biopsied. ? - Gastric lipoma. Biopsied. Recommendation: ?- Discharge patient to home ? (ambulatory). ? - Patient has a contact numbe r ? available for emergencies. Th e signs ? and symptoms of potential del ayed ? complications were discussed with the ? patient. Return to normal act ivities ? tomorrow. Written discharge ? instructions were provided to the ? patient. ? Procedure Code(s): ?? --- Professional --- ? 24455, Esophagogastroduodenos copy, ? flexible, transoral; with bio psy, ? single or multiple Diagnosis Code(s): ?? --- Professional --- ? K22.8, Other specified diseas es of ? esophagus ? D17.5, Benign lipomatous neop lasm of ? intra-abdominal organs ? R10.13, Epigastric pain ? R12, Heartburn ? --- Technical --- ? K22.8, Other specified diseas es of ? esophagus ? D17.5, Benign lipomatous neop lasm of ? intra-abdominal organs ? R10.13, Epigastric pain ? R12, Heartburn CPT copyright 2017 [employer]. All rights reserved. The codes documented in this report are preliminary and upon medical biller/coder review may be revised to meet current compliance requirements. Attending Participation: ? I personally performed the entire procedure. ? OLIVER CABRERA MD Oliver Cabrera MD 11/17/2018 9:00:26 AM This report has been signed electronically. Number of Addenda: 0 Note Initiated On: 11/17/2018 7:36 AM Specimen (Source) Anatomical Collection Method Collection Time Re ceived Time Location / / Volume Laterality 11/17/2018 7:36 AM EDT Unknown GENERAL SURGICAL ORDERABLES Performing Organization Address City/State/ZIP Code Phon e Number [facility] documented in this encounter Visit Diagnoses Not on filedocumented in this encounter Administered Medications Inactive Administered Medications - up to 3 most recent administrations Medication Order MAR Action Action Date Dose Rate Site benzocaine (TOPEX) 20 % topical Given 11/17/2018 8:36 AM EDT 1 e ach aerosol ONCE PRN, Starting on Tue11/17/18 at 0836, Until Tue11/17/18 at 1150, Intra-Operative (Intra-Procedure) fentaNYL 50 mcg/mL multi-dose injection Given 11/17/2018 8:38 AM EDT 50 mcg ONCE PRN, Starting on Tue11/17/18 at 0835, Until Tue11/17/18 at 1150, Intra-Operative (Intra-Procedure), Routine Given 11/17/2018 8:35 AM EDT 50 mcg lactated ringers infusion New Bag 11/17/2018 7:50 AM EDT 100 mL/hr 100 mL/hr 100 mL/hr, Intravenous, CONTINUOUS, Starting on Tue11/17/18 at 0800, Until Tue11/17/18 at 0937, Endoscopy (Day of Procedure) midazolam (PF) (VERSED) multi-dose injec tion Given 11/17/2018 8:44 AM EDT 1 mg ONCE PRN, Starting on Tue11/17/18 at 0835, Until Tue11/17/18 at 1150, Intra-Operative (Intra-Procedure), Routine Given 11/17/2018 8:41 AM EDT 1 mg Given 11/17/2018 8:38 AM EDT 1 mg documented in this encounter Active and Recently Administered Medications Times are shown in EDT. Continuous Medication Order 11/15/2018 11/16/2018 11/17/2018 lactated ringers infusion (CANCELED) 0750 (New Bag - Provider: Joy Morrison RN) 100 mL/hr, at 100 mL/hr, Intravenous, CO NTINUOUS, Starting Tue11/17/18 at 0800, Until Tue11/17/18 at 0937, Endo (Day of Procedure) PRN Medication Order 11/15/2018 11/16/2018 11/17/2018 benzocaine (TOPEX) 20 % topical aerosol (CANCELED) 0836 (Given - Provider: Oliver Cabrera MD) ONCE PRN, Starting Tue11/17/18 at 0836, Intra-Operative (Intra-Pr ocedure) fentaNYL 50 mcg/mL multi-dose injection (CANCELED) 0835 (Given - Provider: Katya Connor, RN)0838 (Given - Provider: Katya Connor, RN) ONCE PRN, Starting Tue11/17/18 at 0835, U ntil Tue11/17/18 at 1150, Intra-Operative (Intra-Procedure), Routine midazolam (PF) (VERSED) multi-dose injection (CANCELED) 0835 (Given - Provider: Katya Connor, RN)0838 (Given - Provider: Katya Connor, PAM)0841 (Given - Provider: Katya Connor, PAM)0844 (Given - Provider: Katya Connor, PAM) ONCE PRN, Starting Tue11/17/18 at 0835, U ntil Tue11/17/18 at 1150, Intra-Operative (Intra-Procedure), Routine documented in this encounter Care Teams Line Tender Flakeboard Relationship Specialty Start Date End Date Sergey Brewer PA PCP - General Family Medicine 08/28/18 01/01/20 [address] [place] [address] documented as of this encounter
--- OUTSIDE RECORDS SUMMARY | 2022-01-08 00:21 | XMS_ITS | Encounter Summary ---
:1970 Author Organization [facility] [place] [address] Care Team Providers Name Role Phone Sergey Brewer Primary Care Provider Reason for Visit Reason Comments Follow-up Encounter Details Date Type Department Care Team Description 12/15/2018 Office Visit General Surgery at [facility] Cope, Gastro esophageal reflux [facility] MD disease, esophagitis [facility] presence not specified [facility] [address] [place], [place] GENERAL SURGERY [address] [place], [place] [phone] [facility] Social History Tobacco Use Types Packs/Day Years Used Date Never Smoker Smokeless Tobacco: Never Used Alcohol Use Standard Drinks/Week Comments Not Currently 0 (1 standard drink = 0.6 oz pure alcoho l) Sex Assigned at Date Recorded Not on file documented as of this encounter Last Filed Vital Signs Vital Sign Reading Time Taken Comments Blood Pressure 129/68 12/15/2018 4:44 PM EDT Pulse 90 12/15/2018 4:44 PM EDT Temperature 36.6 ??C (97.9 ??F) 12/15/2018 4:44 PM EDT Respiratory Rate 18 12/15/2018 4:44 PM EDT Oxygen Saturation 96% 12/15/2018 4:44 PM EDT Inhaled Oxygen Concentration - - Weight 110.9 kg (244 lb 8 oz) 12/15/2018 4:44 PM EDT Height 162.6 cm (5' 4) 12/15/2018 4:44 PM EDT Body Mass Index 41.97 12/15/2018 4:44 PM EDT documented in this encounter Progress Notes Oliver Cope MD - 12/15/2018 4:45 PM EDT Ms. Henderson returns to clinic today following recent EGD. She reports on daily PPI therapy that herepigastric/GERD symptoms are much improved. No specific complaints or concerns. On exam, BP 129/68 (BP Location (NBP): Left arm, Patient Position: Sitting, BP Cuff Sizes: Large Adult (32-43 cm)) Pulse 90 Temp 36.6 ??C (97.9 ??F) (Oral) Resp 18 Ht 162.6 cm (5' 4) Wt 110.9 kg (244 lb 8 oz) SpO2 96% BMI 41.97 kg/m?? Abdomen benign. EGD demonstrated 1cm gastric antral submucosal lipoma. Biopsies of antrum and Z- line negative for H pylori, no Fitch's. Assessment/Plan: Ms. Henderson returns to clinic today reporting reasonable GERD symptom control on daily PPI therapy with EGD negative for Fitch's or other overtly worrisome pathology. She is encouraged to call the office at any time should she desire office re-evaluation. documented in this encounter Plan of Treatment Not on filedocumented as of this encounter Visit Diagnoses Diagnosis Gastroesophageal reflux disease, esophag itis presence not specified documented in this encounter Care Teams Fusing Machine Operator Relationship Specialty Start Date End Date Sergey Brewer PA PCP - General Family Medicine 08/28/18 01/01/20 [address] [place] [address] documented as of this encounter
--- OUTSIDE RECORDS SUMMARY | 2022-01-08 00:21 | XMS_ITS | Encounter Summary ---
:1970 Author Organization [facility] Address [address] [place] [address] Care Team Providers Name Role Phone Sergey Brewer PA-C Primary Care Provider [phone] Encounter Details Date Type Department Care Team Description 12/16/2020 Lab Requisition [facility] Sergey Brewer ncounter for other Pathology & SHELLI Castrejon general examination Laboratory Medicine [address] [place], [place] [address] [facility] [address] [place], [place] [id number] Social History Tobacco Use Types Packs/Day Years Used Date Never Assessed Sex Assigned at Date Recorded Not on file documented as of this encounter Plan of Treatment Not on filedocumented as of this encounter Procedures Procedure Name Priority Date/Time Associated Comments Diagnosis PAP TEST Today 12/15/2020 8:30 Encounter for other Resul ts for this EDT general examination procedur e are in the results section. HUMAN PAPILLOMAVIRUS Today 12/15/2020 8:30 Encounter for oth er Results for this (HPV) DETECTION-HIGH EDT general examination procedure are in RISK TYPES the results section. documented in this encounter Results HUMAN PAPILLOMAVIRUS (HPV) DETECTION-HIGH RISK TYPES (12/15/2020 8:30 EDT) Human Papillomavirus NegativeComment: No Negative [facility]ICAL (HPV) Detection-High E6 or E7 mRNA is CENTER LABORATOR Y Types detected from HPV SERVICES types 16,18,31,33,35,39,45 ,51,52,56,58,59,66, and 68 by cutting machine offbearer mediated amplification. Specimen Pap Test - Cervix and/or Endocervix Performing Organization Address City/State/ZIP Code Phon e Number [facility] [address] [place] [address] SERVICES PAP TEST (12/15/2020 8:30 EDT) Specimens A. Cervix and/or [facility] Endocervix , ThinPrep CENTER Imaging System with LABORATORY Manual Evaluation SERVICES Specimen Adequacy Satisfactory for [facility] Evaluation - CENTER transformation zone LABORATORY component absent SERVICES General Negative for [facility] intraepithelial [place] lesion or malignancy LABORATORY SERVICES Attestation . [facility] signed by CRUZITO Peoples CT(ASCP) on SERVICES 12/24/2020 at 15 30 Clinical History See below [facility] SERVICES HPV The result for the Human Pap illomavirus (HPV) Detection-High Risk Types is Negative. No E6 or E7 mRNA is detected from HPV types 16,18,31,33,35,39,45,51,52,56,58,59,66, and 68 by cutting machine offbearer mediated [facility] amplification.Testing was pe rformed on specimen [id number] and was resulted on 12/24/2020 1522 EDT by [place], LAB INSTRUMENT RESULTS IN [facility] SERVICES Performing Lab [facility] SERVICES Scanned Images [facility] SERVICES Specimen Pap Test - Cervix and/or Endocervix Performing Organization Address City/[facility]/ZIP Code Phon e Number [facility] [address] [place] [address] SERVICES documented in this encounter Visit Diagnoses Diagnosis Encounter for other general examination documented in this encounter Care Teams Creel Cleaner Relationship Specialty Start Date End Date Sergey Brewer PA-C PCP - General 06/10/20 [address] [place] [address] documented as of this encounter
--- OUTSIDE RECORDS SUMMARY | 2022-01-08 00:21 | XMS_ITS | Encounter Summary ---
:1970 Author Organization [facility] Address [address] [place] [address] Care Team Providers Name Role Phone Unknown, Provider Primary Care Provider Encounter Details Date Type Department Care Team Description 10/03/2013 Results Only [facility] Anne Brewer, Laboratory Services - SHELL[facility] [address] [address] [place], [place] [address] [phone] Social History Tobacco Use Types Packs/Day Years Used Date Never Assessed Sex Assigned at Date Recorded Not on file documented as of this encounter Plan of Treatment Not on filedocumented as of this encounter Procedures Procedure Name Priority Date/Time Associated Diagnosis Comme nts PAP TEST- RESULT Routine 10/03/2013 0:00 EDT Resu lts for this ONLY procedure are i n the results section. documented in this encounter Results PAP TEST- RESULT ONLY (10/03/2013 0:00 EDT) Pathology Report: CYTOPATHOLOGY REPORT [facility] Reports generated via electronic interface contain willard ginal data; however they are lacking the format of the original re port. Caution should be taken when reading/interpreting unfo rmatted reports. Name: ? ELIZABETH SELLERS ? Accession #: ? [id number] ? : ? 1970 (Age: 43) ??F ?Collect Da te: ? 10/03/2013 ? Location: ? [facility] ? Receive Date: ? 014 ? Provider: ANNE ALMANZA Copy to: ? Final Report SPECIMEN ADEQUACY ? Satisfactory for Evaluation - transformation zone component present GENERAL CATEGORIZATION ? Epithelial Cell Abnormality INTERPRETATION ? Squamous Cell Abnormality - Atypical squamous c ells, undetermined significance (ASC-US). EDUCATIONAL NOTES/RECOMMENDATIONS ? FORMERLY [facility], [facility] recommends rj rao ASCCP's 2012 Updated Consensus Guidelines for the Management of Abnormal Cervical Cancer Screening T ests and Cancer Precursors (JLGTD, 2013; 17(5):S1-S27). ??Conse nsus guidelines are available online at www.asccp.org. Last Menstrual Period: 09/12/13 Previous Gynecologic Pathology: Yes: abnormal many yea rs ago Treatment History: Endometrial biopsy: Endometrial Abl ation 2009 Colposcopy: Specimen/Source: ??Pap Test, Cervix/Endocervix, ThinPr ep Imaging System with manual evaluation Document reviewed and electronically signed by: ? PAVEL RIVERA MD [facility] ? Report ??Date: 10/16/2013 18:03 HPV with Pap Test ? Date Ordered: ? 10/24/2013 ? Status: ?? Signed Out ?Date Complete: ? 10/26/2013 ? By: ??S ystem Interface ? Date Reported: ? 10/26/2013 ? Interpretation RESULT: Negative for HPV. No E6 or E7 mRNA is detected from HPV types 16,18,31,3 3,35, 39,45,51,52,56,58,59,66, and 68 by applications support analyst media cain elana. Comments Document reviewed and electronically signed by: ? System Interface ? Report date: 10/26/2013 By the signature above, the attending physician certif ies that he/she has personally conducted a gross and/or microscopic examin ation of the described specimens and rendered or confirmed the above diagnosi s. End of Report Specimen Performing Organization Address City/State/ZIP Code Phon e Number [facility] [address] [place] [address] SERVICES [facility] [address] [place] [address] documented in this encounter Visit Diagnoses Not on filedocumented in this encounter Care Teams Help Desk Team Leader Relationship Specialty Start Date End Date Unknown, Provider, PCP - General 09/05/09 10/17/13 documented as of this encounter
--- OUTSIDE RECORDS SUMMARY | 2022-01-08 00:21 | XMS_ITS | Encounter Summary ---
:1970 Author Organization [facility] Address [address] [place] [id number] Care Team Providers Name Role Phone Unavailable Primary Care Provider Unavailable Encounter Details Date Type Department Care Team Description 09/03/2009 Results Only [facility] Cheryl Ramires MD Laboratory Services - [address] [place] [address] [place] [address] Social History Tobacco Use Types Packs/Day Years Used Date Never Assessed Sex Assigned at Date Recorded Not on file documented as of this encounter Plan of Treatment Not on filedocumented as of this encounter Procedures Procedure Name Priority Date/Time Associated Diagnosis Comme [facility] SURGICAL PATHOLOGY Routine 09/03/2009 0:00 EDT Re sults for this procedure are i n the results section. documented in this encounter Results SURGICAL PATHOLOGY (09/03/2009 0:00 EDT) Pathology Report: SURGICAL PATHOLOGY REPORT ? [facility] Reports generated via INFOGRAPHIQS interface contain original data; ? LAB however they are lacking the format of the original report. ? Caution should be taken when reading/interpreting unformatted reports. ? Name: ? VERITO, ELIZABETH ? Accession #: ? [id number] ? : ? 1970 (Age: 39) ??F ? Collec t Date: ? 09/03/2009 ? Location: ? [facility] ? R eceive Date: ? 09/03/2009 ? Provider: CHERYL EUSEBIO MD ? Copy to: CONCHA JAY AUTO SERVICE WRITER ? Final Pathologic Diagnosis: ? A. ?Endometrium , curettage: ? 1. ?Polypoid fr agments of secretory endometrium (day 20 ??22). ??See ? comment. ? 2. ? No hyperplasia iden tified. ? B. ?Submitted a s Nabothian cyst, excision: ? 1. ?Polypoid fr agment of transformation zone mucosa with no specific ? pathologic features. ??See c omment. ? Comment: ? Autopsy Assistant sectio ns have been reviewed at intradepartmental ? consultation conference. ??( Dr. Carr)/cjh ? Document reviewed and electr onically signed by: ? ROSE MARIE CARR MD ? Report ??Date: 09/08/2009 12 :38 ? By the signature above, the attending physician certifies that he/she has ? personally conducted a gross and/or microscopic examination of the described ? specimens and rendered or co nfirmed the above diagnosis. ? Specimen(s) Received: ? A. ?Endometrial curettings ? B. ? Nabothian cyst ? Clinical History: ? Menorrhagia/? endomet rial cyst or polyp ? Gross Description: ? Received in formalin labelled Elizabeth Gaming and #1 endometrial ? curettings is a 4.0 x 3.0 x 1.0 cm aggregate of villatoro-brown fragments of tissue ?? admixed with blood clot. ??T he specimen is submitted entirely as (A1) through ? (A5). ? Received in formalin radha d Elizabeth Gaming and #2 Nabothian cyst are two ?? villatoro-white fragments of tissu e which measure 1.2 x 1.0 x 0.3 cm and 0.5 x 0.4 x ?? 0.2 cm. ??The specimens are submitted intact as (B). ??(Molly Antony)/jg ? End of Report ? Specimen Performing Organization Address City/State/ZIP Code Phon e Number [facility] [address] [place] [address] SERVICES [facility] [address] [place] [address] documented in this encounter Visit Diagnoses Not on filedocumented in this encounter
--- OUTSIDE RECORDS SUMMARY | 2022-01-08 00:21 | XMS_ITS | Encounter Summary ---
:1970 Author Organization [facility] [place] [address] Care Team Providers Name Role Phone Sergey Brewer Primary Care Provider Encounter Details Date Type Department Care Team Description 09/28/2018 Telephone General Surgery at [facility] [place] [phone] Social History Tobacco Use Types Packs/Day Years Used Date Never Smoker Sex Assigned at Date Recorded Not on file documented as of this encounter Miscellaneous Notes Telephone Encounter - Alecia Stroud - 09/28/2018 11:37 AM EDT Elizabeth called back confirming EGD date/time change with Dr. Cope (appt 11/17/18 w/ an arrival time of7:30a). documented in this encounter Plan of Treatment Not on filedocumented as of this encounter Visit Diagnoses Not on filedocumented in this encounter Care Teams Shop Superintendent Relationship Specialty Start Date End Date Sergey Brewer PA PCP - General Family Medicine 08/28/18 01/01/20 [address] [place] [address] documented as of this encounter
--- OUTSIDE RECORDS SUMMARY | 2022-01-08 00:21 | XMS_ITS | Encounter Summary ---
:1970 [place] [address] Care Team Providers Name Role Phone Sergey Brewer Primary Care Provider Encounter Details Date Type Department Care Team Description 09/22/2020 Ext Surgery or Cardiology at [facility], Chest p ain, Single Event Keyona MONAHAN unspecified type [address] [place], [place] [phone] Social History Tobacco Use Types Packs/Day Years Used Date Never Smoker Smokeless Tobacco: Never Used Alcohol Use Standard Drinks/Week Comments Not Currently 0 (1 standard drink = 0.6 oz pure alcoho l) Sex Assigned at Date Recorded Not on file documented as of this encounter Progress Notes [facility] MD - 09/22/2020 4:40 PM EDT Location: [facility] Referring: Jeremiahkarina Indication: Chest pain Duration of recording - 23h59m Summary Data Predominant rhythm - sinus rhythm Minimum sinus rate: 51 bpm Maximum sinus rate: 119 bpm Average sinus rate: 79 bpm Supraventricular Beats Rare (0.2%) atrial premature beats (APC???s) There were 0 runs of SVT There was no atrial fibrillation Ventricular Beats No ventricular premature beats (VPC's) No high grade or sustained ventricular ectopy AV Node No high grade conduction block noted There were 2 patient diary events: - Symptoms included: tightening in chest - These events were correlated with normal sinus rhythm, without nearby arrhythmia nor ectopy. There are no evident ST-TW changes. Conclusion(s): 1) Predominant rhythm is sinus, with normal range and circadian variation 2) No significant supraventricular or ventricular ectopy 3) No electrophysiologic basis of reported symptoms is demonstrated Electronically Signed: [facility] MD, 09/22/2020 12:58 PM documented in this encounter Plan of Treatment Not on filedocumented as of this encounter Visit Diagnoses Diagnosis Chest pain, unspecified type documented in this encounter Care Teams Active Directory Administrator Relationship Specialty Start Date End Date Sergey Brewer PA PCP - General Family Medicine 09/22/20 [address] [place] [address] documented as of this encounter
--- OUTSIDE RECORDS SUMMARY | 2022-01-08 00:21 | XMS_ITS | Clinical Summary ---
:1970 Author Organization [facility] [place] [address] Care Team Providers Name Role Phone Sergey Brewer Primary Care Provider Allergies Active Allergy Reactions Severity Noted Date Comments Amoxicillin Rash 09/18/2018 Codeine Shortness Of Breath High 09/18/2018 Meperidine Rash 09/18/2018 Cephalexin Rash 09/18/2018 Morphine Shortness Of Breath High 09/18/2018 Esomeprazole Magnesium Other (See Comments) 09/18/2018 Tongue gets [place] Ranitidine Other (See Comments) 09/18/2018 tongue gets tingly Medications No known medications Encounters Date Type Specialty Care Team Description 12/29/2021 Transcribe Orders Primary Care Sergey Brewer PA Senile lentigo from Last 3 Months Social History Tobacco Use Types Packs/Day Years Used Date Never Smoker Smokeless Tobacco: Never Used Alcohol Use Standard Drinks/Week Comments Not Currently 0 (1 standard drink = 0.6 oz pure alcoho l) Sex Assigned at Date Recorded Not on file Last Filed Vital Signs Vital Sign Reading [...] Mass Index 41.97 12/15/2018 4:44 PM EDT Plan of Treatment Health Maintenance Due Date Last Done Comments Covid-19 Vaccine (#1) 1975 HIV screen 02/21/1988 Hepatitis C Screening 02/21/1988 Tdap adult 1989 Tetanus vaccine 1989 HPV test 02/21/2000 PAP Smear 02/21/2000 Breast Cancer Share Decision Needed 2010 Colonoscopy 2015 Breast Cancer screening 02/21/2020 Zoster vaccine (1 of 2) 02/21/2020 Influenza (Flu) vaccine (1 of 1 - Influenza standard 01/14/2022 series) Insurance Payer Benefit Plan / Subscriber ID Effective Phone Address T ype Group Dates [employer] [facility] [id number] 2021-Prese [phone] [address] [place] [address] [place] [id number] 2019-Pres [phone] [address] [place] [address] Care Teams Small Lot Operator Relationship Specialty Start Date End Date Sergey Brewer PA PCP - General Family Medicine 09/22/20 [address] [place] [address]
--- OUTSIDE RECORDS SUMMARY | 2022-01-08 00:21 | XMS_ITS | Encounter Summary ---
:1970 Author Organization [facility] Address [address] [place] [address] Care Team Providers Name Role Phone Denise Becerra MD Primary Care Provider Encounter Details Date Type Department Care Team Description 11/19/2015 Results Only [facility]- Anne Waters, PA-C [address] [place], [place] [phone] (Wo rk) Social History Tobacco Use Types Packs/Day Years Used Date Never Assessed Sex Assigned at Date Recorded Not on file documented as of this encounter Plan of Treatment Not on filedocumented as of this encounter Procedures Procedure Name Priority Date/Time Associated Diagnosis Comme nts PAP TEST- RESULT Routine 11/19/2015 0:00 EDT Resu lts for this ONLY procedure are i n the results section. documented in this encounter Results PAP TEST- RESULT ONLY (11/19/2015 0:00 EDT) Pathology Report: CYTOPATHOLOGY REPORT [facility] Reports generated via electronic interface contain willard ginal data; SERVICES however they are lacking the format of the original re port. Caution should be taken when reading/interpreting unfo rmatted reports. Name: ? ELIZABETH SELLERS ? Accession #: ? [id number] ? : ? 1970 (Age: [age]) ??F ?Collect Date: ? 2015 ? Location: ? [facility] ? Receive Date: ? 6 ? Provider: ANNE AMEZQUITA PA-C Copy to: ? Final Report SPECIMEN ADEQUACY ? Satisfactory for Evaluation - transformation zone component present GENERAL CATEGORIZATION ? Negative for Intraepithelial Lesion or Malignan cy ?? Last Menstrual Period: 10/22/15 Hormonal/Contraceptive status: None Previous Gynecologic Pathology: ASC-US: 10/03/2013 Infection History: Neg for HPV: 10/03/2013 Specimen/Source: ??Pap Test, Cervix/Endocervix, ThinPr ep Imaging System with manual evaluation Document reviewed and electronically signed by: ? April Avery, [facility](ASCP) ? Report ??Date: 12/02/2015 16:20 HPV with Pap Test ? Date Ordered: ? 12/02/2015 ? Status: ?? Signed Out ?Date Complete: ? 12/04/2015 ? By: ??Sy stem Interface ? Date Reported: ? 12/04/2015 ? Interpretation RESULT: Negative for HPV. No E6 or E7 mRNA is detected from HPV types 16,18,31,3 3,35, 39,45,51,52,56,58,59,66, and 68 by dispensing operator media cain amplification. Comments Document reviewed and electronically signed by: ? System Interface ? Report date: 12/04/2015 By the signature above, the attending physician certif ies that he/she has personally conducted a gross and/or microscopic examin ation of the described specimens and rendered or confirmed the above diagnosi s. End of Report Specimen Performing Organization Address City/State/ZIP Code Phon e Number [facility] [address] [place] [address] SERVICES documented in this encounter Visit Diagnoses Not on filedocumented in this encounter Care Teams Spike Maker Relationship Specialty Start Date End Date Denise Becerra MD PCP - General 10/18/13 06/09/20 [address] [place], [place] [id number] documented as of this encounter
--- OUTSIDE RECORDS SUMMARY | 2022-01-08 00:22 | XMS_ITS | Encounter Summary ---
:1970 Author Organization [facility] Address [address] [place] [address] Care Team Providers Name Role Phone Unavailable Primary Care Provider Unavailable Encounter Details Date Type Department Care Team Description 03/12/2008 Before [facility] - Anne Brewer Converted Visit Maple conversion SHELLI Castrejon (Maple) [address] [facility] [address] [place] [address] [place], [place] [phone] (Wo rk) Social History Tobacco Use Types Packs/Day Years Used Date Never Assessed Sex Assigned at Date Recorded Not on file documented as of this encounter Plan of Treatment Not on filedocumented as of this encounter Procedures Procedure Name Priority Date/Time Associated Diagnosis Comme nts CYTOPATHOLOGY Routine 03/12/2008 0:00 EDT Results for this procedure are i n the results section . documented in this encounter Results CYTOPATHOLOGY (03/12/2008 0:00 EDT) Pathology Report: CYTOPATHOLOGY REPORT ? [facility] ? LAB Reports generated via electr onic interface contain original data; ? however they are lacking the format of the original report. ? Caution should be taken when reading/interpreting unformatted reports. ? Name: ? ELIZABETH SELLERS ? Accession #: ? [id number] ? : ? 1970 (Age: 38) ??F ?Collect Date: ? 03/12/2008 ? Location: ? [facility] ? Receive Date: ? 03/14/2008 ? Provider: ?ANNE GABRIEL ? Copy to: ? Specimen/Source: ? Pap Test, Vagina/Cervix, ThinPrep Imaging System with ?? manual evaluation ? Last Menstrual Period: ? 10/11/08 ? Previous Gynecologic Patholo gy: ? Yes: H/o abnormal x 1 ? Treatment History: ? Cryotherapy ? Other: ? HPVA - HPV testing requested if ASC-US on the current ThinPrep Pap test. ? SPECIMEN ADEQUACY ? Satisfactory for Eval uation ? - transformation zone compon ent present ? GENERAL CATEGORIZATION ? Negative for Intraepi thelial Lesion or Malignancy ? Document reviewed and electr onically signed by: ? Tracie [place], [place]( CP) ? Report Date: ??11/04/ 2008 08:18 ? End of Report ? Specimen Performing Organization Address City/State/ZIP Code Phon e Number [facility] [address] [place] [address] SERVICES [facility] [address] [place] [address] documented in this encounter Visit Diagnoses Not on filedocumented in this encounter
--- OUTSIDE RECORDS SUMMARY | 2022-01-08 00:22 | XMS_ITS | Encounter Summary ---
:1970 Author Organization [facility] Address [address] [place] [address] Care Team Providers Name Role Phone Unknown, Provider Primary Care Provider Encounter Details Date Type Department Care Team Description 10/22/2004 Results Only [facility] - Denise Blake MD conversion [address] [facility] [address] [place] [address] [place] [address] [phone] Social History Tobacco Use Types Packs/Day Years Used Date Never Assessed Sex Assigned at Date Recorded Not on file documented as of this encounter Plan of Treatment Not on filedocumented as of this encounter Procedures Procedure Name Priority Date/Time Associated Diagnosis Comme nts CYTOPATHOLOGY Routine 10/22/2004 0:00 EDT Results for this procedure are i n the results section . documented in this encounter Results CYTOPATHOLOGY (10/22/2004 0:00 EDT) Pathology Report: CYTOPATHOLOGY REPORT [facility] Reports generated via electronic interface contain willard ginal data; however they are lacking the format of the original re port. Caution should be taken when reading/interpreting unfo rmatted reports. Name: ? ELIZABETH SELLERS ? Accession #: ? [id number] : ? 1970 (Age: 34) ??F ?Collect Date: ? 01/2005 Location: ? [facility] ? Receive Date : ? 10/23/2004 Provider: ?DENISE FOWLER MD Copy to: ? Specimen/Source: ?ThinPrep Pap Test, Cervix/ Endocervix Last Menstrual Period: ? 10/02/04 Treatment History: ? Cryotherapy: 1990 ? SPECIMEN ADEQUACY ? Satisfactory for Evaluation - transformation zone component present GENERAL CATEGORIZATION ? Negative for Intraepithelial Lesion or Malignan cy ? Document reviewed and electronically signed by: ? Shelli Armas, [facility](ASCP) ? Report Date: ??10/31/2004 12:53 End of Report Specimen Performing Organization Address City/State/ZIP Code Phon e Number [facility] [address] [place] [address] SERVICES [facility] [address] [place] [address] documented in this encounter Visit Diagnoses Not on filedocumented in this encounter Care Teams Running Rigger Relationship Specialty Start Date End Date Unknown, Provider, PCP - General 09/05/09 10/17/13 documented as of this encounter
== END ==
PROVIDERS: PCP Physician Assistant Medical; Visit Provider Physician Assistant Medical
DX: Z12.31 Encounter for screening mammogram for malignant neoplasm of breast (principal); R92.8 Other abnormal and inconclusive findings on diagnostic imaging of breast; N64.59 Other signs and symptoms in breast
CPT/HCPCS: 76642; 77063; 77067

== ENCOUNTER → 2022-03-22 01:48 | Outpatient (CLI) | payer BC, MEDICAID, SELFPAY ==
--- NOTE | 2022-03-22 09:00 | DI.RAD_ITS ---
Exam(s) XR CHEST 2V PA LATERAL EXAM: XR CHEST 2V PA LATERAL CLINICAL HISTORY: SOB, R06.02. TECHNIQUE: 2D digital imaging was performed. COMPARISON: CR XR CHEST 2V PA LATERAL from 03/26/2019 FINDINGS: 2 views: Heart size is normal. The mediastinum is not widened. Lungs are clear. No infiltrates nor pleural effusions. IMPRESSION: No acute pulmonary findings. DATA REPOSITORY: RADIATION DOSE DELIVERED:
== END ==
PROVIDERS: PCP Physician Assistant Medical; Visit Provider Nurse Practitioner Family
DX: R06.02 Shortness of breath (principal)
CPT/HCPCS: 71046

== ENCOUNTER 2022-05-12 15:48 | Outpatient (REF) | payer BC, MEDICAID, SELFPAY ==
[2022-05-13 23:37] LABS: Influenza A RNA Result Negative (Negative); Influenza B RNA Result Negative (Negative); RSV RNA Result Negative (Negative)
== END 2022-05-12 15:49 | disposition home or self-care (01) ==
LOC: NCHCN 15:48
PROVIDERS: PCP Physician Assistant Medical; Visit Provider Nurse Practitioner Family
DX: R05.1 Acute cough (principal)
CPT/HCPCS: 87631

== ENCOUNTER 2022-05-14 10:53 | Emergency (ER) | payer BC, MEDICAID, SELFPAY ==
--- NOTE | 2022-05-14 10:45 | RT.EKG_ITS ---
APPROVED REPORT Exam: Resting ECG Reason for Exam: Chest tightness Patient Location: E HR:77 bpm ECG Measurements Heart Rate 77 AXIS ME 142 P 17 QRSd 98 QRS 7 QT 380 T 10 QTc 430 Conclusion Sinus rhythm...normal P axis, V-rate 60- 99 sinus rhtyhm, normal axis, normal intevals, nonischemic
[2022-05-14 10:57] VITALS: BP 149/76; PULSE 75; RESP 18; TEMP 36.6; O2SAT 96
--- NOTE | 2022-05-14 11:19 | DI.RAD_ITS ---
Exam(s) XR CHEST 2V PA LATERAL EXAM: XR CHEST 2V PA LATERAL CLINICAL HISTORY: productive cough TECHNIQUE: 2D digital imaging was performed. COMPARISON: CR XR CHEST 2V PA LATERAL from 03/22/2022 FINDINGS: HEART: Normal size. Aorta: Not dilated. PULMONARY VASCULATURE: Normal. LUNGS: Clear. PLEURAL SPACE: No pleural effusion or pneumothorax. BONE:Unremarkable for age. IMPRESSION: No acute abnormality. DATA REPOSITORY: RADIATION DOSE DELIVERED:
--- NOTE | 2022-05-14 11:25 | ED.GENADUL_ITS ---
Discharge Plan Disposition Patient Disposition: Home Condition: Improving Discharge Details Chief Complaint: SOB Clinical Impression: Acute viral syndrome Primary Care Provider: Sergey Brewer ED Provider: Anson Fajardo Home Meds and New Rx's Prescriptions: No Action pantoprazole 40 mg tablet,delayed release (DR/EC) 40 mg PO DAILY Probiotic 3 billion cell capsule 3,000 mmu cells PO DAILY Rx Instructions: administer with a meal Discharge Instructions Instructions: Viral Syndrome (ED) Additional Instructions: Please follow-up with your primary care physician. Please continue with your nebs at home. Return to the emergency department for any worsening symptoms. Medical Decision Making 52-year-old female history of asthma, recently completed course of antibiotics for bronchitis, recently exposed to someone with RSV presents with productive cough over the past several days, alert oriented resting comfortably nontoxic nonhypoxic; bilateral wheezing expiratory in nature. Likely viral syndrome exacerbating asthma. Must also consider pneumonia given multiple recent respiratory infections now with productive cough. Will start nebs and steroids, will obtain chest x-ray. EKG nonischemic. Disposition likely home 13: 19 patient resting comfortably work of breathing greatly improved. Feeling better after meds. No evidence of pneumonia. Home care instructions and return precautions given HPI General Date/Time Provider Initiated Documentation: 05/14/22 11:07 . HPI Narrative: 52-year-old female history of asthma presents with cough productive of yellow- brown sputum, recent influenza, recent bronchitis completed course of antibiotics several weeks ago, was exposed to someone with RSV. Related Data Home Medications Medication Instructions Recorded Confirmed lactobacillus combination no.4 3 3,000 mmu cells PO DAILY 01/20/21 01/22/21 billion cell capsule (Probiotic) pantoprazole 40 mg tablet,delayed 40 mg PO DAILY 01/20/21 01/22/21 release Allergies Allergy/AdvReac Type Severity Reaction Status Date / Time meperidine HCl [From Demerol] Allergy Intermediate Wheezing Verified 01/21/21 10:45 cephalexin monohydrate Allergy Mild Skin Rash Verified 01/21/21 10:45 [From Keflex] amoxicillin Allergy Verified 01/21/21 10:45 cephalexin [From Keflex] Allergy Verified 01/21/21 10:45 codeine [Codeine] AdvReac Mild Nausea Verified 01/21/21 10:45 morphine AdvReac Mild Nausea Verified 01/21/21 10:45 trout Allergy Severe Anaphylaxsi Uncoded 03/20/20 16:14 s General Stated Complaint: SOB FEDERICO: 3 Review of Systems Narrative: Review of Systems Constitutional: negative Eyes: negative ENT: negative Cardiovascular: negative Respiratory: Cough Gastrointestinal: negative : negative Musculoskeletal: negative Skin: negative Neurologic: negative Psych: negative PFSH All Active Problems (Updated 05/14/22 @ 13:20 by Anson Fajardo MD) Acute viral syndrome (Acute) Hx of colonoscopy (Chronic) History of bilateral knee replacement (Acute) Hx of knee surgery (Acute) History of endometrial ablation (Acute) Hx of cholecystectomy (Chronic) History of tonsillectomy and adenoidectomy (Acute) Hx of eye surgery (Acute) Ventral hernia (Acute) Herpes labialis (Acute) Dysuria-frequency syndrome (Acute) Abdominal pain (Acute) Ganglion cyst (Acute) Heart murmur (Acute) Phlegm in throat (Acute) Globus sensation (Acute) Xerostomia (Acute) Medical History (Updated 05/14/22 @ 13:20 by Anson Fajardo MD) GERD (gastroesophageal reflux disease) Obesity Osteoarthritis Prediabetes Family History Father No problems noted. Mother Dementia Other Crohn's disease Social History Smoking/Tobacco Use Status: Never Smoking risk assessment performed?: Yes Alcohol Intake: never Drug use: Never Do you feel safe at home: Yes Do you feel safe in your relationship?: Yes Exam Narrative Exam Narrative: Physical Examination General: alert, awake, cooperative, resting comfortably, no acute distress HEENT: normocephalic, atraumatic; PERRL, EOM intact, conjunctiva normal; no nasal discharge; moist mucous membranes, oral and pharyngeal mucosa normal, tolerating secretions Neck: supple, trachea midline; full ROM Chest: normal to inspection Respiratory: normal respiratory effort, speaking in full sentences, bilateral expiratory wheeze Cardiac: regular rate, regular rhythm, S1S2 intact, no murmurs rubs or gallops GI: abdomen soft, non-tender, non-distended; no palpable mass or hepatosplenomegaly Skin: no lesions, rashes or trauma appreciated Neuro: AAOx3, normal speech, moving all extremities Psych: Appropriate mood and affect Course Vital Signs Vital signs: Vital Signs Temperature 36.6 C 05/14/22 10:57 Pulse 75 05/14/22 10:57 Respiratory Rate 18 05/14/22 10:57 Blood Pressure 149/76 H 05/14/22 10:57 Pulse Oximetry 96 05/14/22 10:57 Temperature 36.6 C 05/14/22 10:57 Temperature Source Tympanic 05/14/22 10:57 Pulse 75 05/14/22 10:57 Respiratory Rate 18 05/14/22 10:57 Respiratory Effort 05/14/22 11:00 Blood Pressure 149/76 H 05/14/22 10:57 Blood Pressure Position Supine 05/14/22 10:57 Pulse Oximetry 96 05/14/22 10:57 Oxygen Delivery Method Room Air 05/14/22 10:57 Oxygen Flow Rate 0 05/14/22 10:57 Pain Level 2 05/14/22 10:57
[2022-05-14 11:41] VITALS: RESP 4
[2022-05-14] MEDS: Albuterol/Ipratropium 3 ML UPD VIAL 9 ML UPD (11:41)
[2022-05-14] MEDS: Dexamethasone 10 MG/ML VIAL IVP (11:42)
[2022-05-14 13:40] VITALS: BP 153/81; PULSE 78; RESP 18; O2SAT 99
== END 2022-05-14 13:47 | disposition home or self-care (01) ==
PROVIDERS: Emergency Provider Emergency Medicine; PCP Physician Assistant Medical
DX: B34.9 Viral infection, unspecified (principal); J45.909 Unspecified asthma, uncomplicated
CPT/HCPCS: 93005; 94640; 96374; 99284; 71046; 93010; J1100; J7620

== ENCOUNTER 2022-10-25 13:55 | Outpatient (CLI) | payer BC, MEDICAID, SELFPAY ==
--- NOTE | 2022-10-25 | DI.RAD_ITS ---
Exam(s) XR FOOT LT COMPLETE EXAM: XR FOOT LT COMPLETE CLINICAL HISTORY: LEFT FOOT PAIN M79.672 AFTER INJURY 2 WEEKS AGO, SLIGHT SWELLING. TECHNIQUE: 2D digital imaging was performed. COMPARISON: No exams were available for comparison FINDINGS: 3 views No evidence of acute fracture or diastasis of the Lisfranc joint. Soft tissue swelling noted dorsall y but no metatarsal fractures. No osseous lesions. Bone density normal. No inferior calcaneal spur . IMPRESSION: No acute osseous findings. DATA REPOSITORY: RADIATION DOSE DELIVERED:
== END 2022-10-25 14:15 ==
LOC: DI 13:56
PROVIDERS: PCP Nurse Practitioner Family; Visit Provider Nurse Practitioner Family
DX: M79.672 Pain in left foot (principal)
CPT/HCPCS: 73630

== ENCOUNTER 2022-11-01 12:21 | Emergency (ER) | payer BC, MEDICAID, SELFPAY ==
[2022-11-01 12:35] VITALS: BP 136/86; PULSE 94; RESP 15; TEMP 36.8; O2SAT 98
--- NOTE | 2022-11-01 13:14 | ED.GENADUL_ITS ---
Discharge Plan Disposition Patient Disposition: Home Discharge Details Clinical Impression: Pharyngitis Primary Care Provider: Katharina Delatorre ED Provider: Luca Wilkerson Home Meds and New Rx's Prescriptions: New clindamycin HCl 300 mg capsule 300 mg PO TID 10 Days Qty: 30 0RF Continued albuterol sulfate 2.5 mg /3 mL (0.083 %) solution for nebulization 2.5 mg inhalation .Q4-6H PRN budesonide-formoterol [Symbicort] 160-4.5 mcg/actuation HFA aerosol inhaler 2 puff inhalation BID (DME) BreatheRite Valved MDI Spacer Spacer See Rx Instructions .Route Rx Instructions: As directed omeprazole 20 mg capsule,delayed release(DR/EC) 20 mg PO DAILY Discharge Instructions Instructions: Pharyngitis (ED) Additional Instructions: You may continue to use gbmk-xod-yldzsri medications such as acetaminophen or ibuprofen as needed for fever or chills and discomfort. Just take as directed on packaging. If you develop any new or significant worsening of symptoms please return the emergency department for reassessment otherwise follow-up with your primary care provider if not improving over the next week. It is very important that you finish the full 10-day course of the antibiotic and do not save any medication Referrals: Katharina Delatorre [Primary Care Provider] - Discharge Data Discharge Date/Time-TO BE ENTERED AT DEPARTURE: 11/01/22 13:49 Medical Decision Making Patient presenting to the emergency department for chief complaint of sore throat. Patient reports that her son recently was diagnosed with strep throat and was started on antibiotics but 3 days ago she started having sore throat intermittent fevers and malaise. Patient denies nasal congestion, cough, or oth er symptoms. Does state some slight upset stomach with any food intake as well. Physical exam shows posterior and tonsillar erythema but no exudates, mild lymphadenopathy, otherwise unremarkable exam. Given recent exposure will perform rapid strep testing. Rapid strep test is negative so we sent over for culture. Given recent exposure though did discuss with mother risk versus benefit of antibiotics. After discussion of risk versus benefit of antibiotics shared decision-making was utilized and patient will be placed upon clindamycin given amoxicillin and Keflex allergy. After discussion of diagnosis and plan of care patient has no further needs, questions, or concerns and states clear understanding to return to the emergency department for any worsening symptoms. This documentation was generated using [employer] dictation system, please disregard any oddities of phrase or misspellings. HPI General Mode of arrival: ambulatory . Date/Time Provider Initiated Documentation: 11/01/22 13:12 . Limitations to Documentation: no limitations . Information obtained by: patient and RN notes reviewed . History of Present Illness 52 year old F presents to the emergency department with the chief complaint of Sore throat, fever chills, described as moderate, Quality is described as aching and sharp, and is localized to the neck. Patient started experiencing this day(s) (3) and it has been constant. No relieving factors improve symptom(s), No exacerbating factors reported . Patient notes fever/chills; denies cough. Patient did receive the following treatments prior to arrival, none Related Data Home Medications Medication Instructions Recorded Confirmed albuterol sulfate 2.5 mg/3 mL 2.5 mg inhalation .Q4-6H PRN 05/21/22 11/01/22 (0.083 %) solution for nebulization budesonide-formoterol HFA 160 2 puff inhalation BID 05/21/22 11/01/22 mcg-4.5 mcg/actuation aerosol inhaler (Symbicort) inhalational spacing device 05/21/22 11/01/22 (BreatheRite Valved MDI Spacer) omeprazole 20 mg capsule,delayed 20 mg PO DAILY 05/21/22 11/01/22 release clindamycin HCl 300 mg capsule 300 mg PO TID 10 days #30 caps 11/01/22 Previous Rx's Medication Instructions Recorded clindamycin HCl 300 mg capsule 300 mg PO TID 10 days #30 caps 11/01/22 Allergies Allergy/AdvReac Type Severity Reaction Status Date / Time meperidine HCl [From Demerol] Allergy Intermediate Wheezing Verified 11/01/22 12:37 cephalexin monohydrate Allergy Mild Skin Rash Verified 11/01/22 12:37 [From Keflex] amoxicillin Allergy Verified 11/01/22 12:37 cephalexin [From Keflex] Allergy Verified 11/01/22 12:37 codeine [Codeine] AdvReac Mild Nausea Verified 11/01/22 12:37 morphine AdvReac Mild Nausea Verified 11/01/22 12:37 trout Allergy Severe Anaphylaxsi Uncoded 11/01/22 12:37 s General Stated Complaint: Sorethroat FEDERICO: 4 Review of Systems Constitutional Constitutional: Reports chills, Reports fever(s), Denies headache(s) and Reports malaise ENT Ears, Nose, Mouth, and Throat: Denies change in voice, Denies dysphagia, Denies otalgia, Denies headache(s), Denies hoarseness, Denies lip swelling, Denies mouth lesions, Reports nasal congestion, Reports odynophagia, Reports sore throat, Denies throat swelling and Denies tongue swelling Cardiovascular Cardiovascular: Denies chest pain Respiratory Respiratory: Denies chest congestion and Denies cough Gastrointestinal Gastrointestinal: Denies dysphagia and Reports odynophagia Neurologic Neurologic: Denies headache(s) Allergic/Immunologic Allergic/Immunologic: Denies lip swelling, Denies throat swelling and Denies tongue swelling PFSH All Active Problems (Updated 11/01/22 @ 13:34 by Luca Wilkerson NP) Pharyngitis (Acute) Dyspnea (Acute) Asthma (Chronic) Hx of colonoscopy (Chronic) Hx of knee surgery (Acute) History of endometrial ablation (Acute) History of tonsillectomy and adenoidectomy (Acute) Hx of eye surgery (Acute) Ventral hernia (Acute) Herpes labialis (Acute) Dysuria-frequency syndrome (Acute) Abdominal pain (Acute) Ganglion cyst (Acute) Heart murmur (Acute) Phlegm in throat (Acute) Globus sensation (Acute) Xerostomia (Acute) Medical History GERD (gastroesophageal reflux disease) Obesity Osteoarthritis Prediabetes Surgical History History of bilateral knee replacement History of tonsillectomy Hx of cholecystectomy Family History Father No problems noted. Mother Dementia Other Crohn's disease Social History Smoking/Tobacco Use Status: Never Smoking risk assessment performed?: Yes Alcohol Intake: never Drug use: Never Substance use type: does not use Do you feel safe at home: Yes Do you feel safe in your relationship?: Yes Exam Const General: cooperative, healthy appearing, comfortable, no acute distress and not ill appearing Orientation: alert, awake and oriented x3 HENMT Head: normal to inspection and normocephalic Ears: hearing grossly normal bilaterally, external ears normal, TM's normal bilaterally and mastoids normal General nose exam: external nose normal and nares normal Face and sinus: normal facial exam and sinuses nontender Mouth: oral mucosae normal, lip normal, tongue normal, no audible dysphonia, no drooling and no trismus Throat: posterior oropharynx normal, tonsils normal, uvula midline and no peritonsillar masses Neck Neck: normal visual inspection, full ROM, no lymphadenopathy and no meningeal signs Resp Effort & Inspection: normal respiratory effort, able to speak in complete sente nces and no stridor Auscultation: clear to auscultation bilaterally Cardio Rate: regular rate Rhythm: regular rhythm Heart Sounds: S1 normal and S2 normal Skin General skin exam: no rashes or lesions noted Course Vital Signs Vital signs: Vital Signs Temperature 36.8 C 11/01/22 12:35 Pulse 94 H 11/01/22 12:35 Respiratory Rate 15 11/01/22 12:35 Blood Pressure 136/86 11/01/22 12:35 Pulse Oximetry 98 11/01/22 12:35 Temperature 36.8 C 11/01/22 12:35 Temperature Source Temporal Artery Scan 11/01/22 12:35 Pulse 94 H 11/01/22 12:35 Respiratory Rate 15 11/01/22 12:35 Respiratory Effort Normal 11/01/22 12:36 Blood Pressure 136/86 11/01/22 12:35 Blood Pressure Position Sitting 11/01/22 12:35 Pulse Oximetry 98 11/01/22 12:35 Oxygen Delivery Method Room Air 11/01/22 12:35 Oxygen Flow Rate 0 11/01/22 12:35 Pain Level 3 11/01/22 12:35 Lab/Test Results Lab/Test Results: POC Strep Test-GIOVANI(Rapid) Start: 11/01/22 12:43 Freq: Status: Complete Protocol: Document 11/01/22 12:54 NAHEED (Rec: 11/01/22 12:55 NAHEED [id number]) Strep test-GIOVANI(Rapid)-POC POC-Strep test-GIOVANI (Rapid) Negative POC-Strep test-GIOVANI (Rapid) Negative
[2022-11-01 13:45] VITALS: BP 124/75; PULSE 98; RESP 16; O2SAT 99
== END 2022-11-01 13:49 | disposition home or self-care (01) ==
PROVIDERS: Emergency Provider Nurse Practitioner Family; PCP Nurse Practitioner Family
DX: J02.9 Acute pharyngitis, unspecified (principal)
CPT/HCPCS: 87880; 99283; 87081

== ENCOUNTER 2023-01-07 09:19 | Outpatient (CLI) | payer BC, MEDICAID, SELFPAY ==
[2023-01-07 09:37] LABS: HCT 36.9 % (36.0-46.0); HGB 12.2 g/dL (11.2-15.7); MCH 28.6 pg (27.0-33.0); MCHC 33.1 % (32.0-36.0); MCV 87 fL (80-95); MPV 10.1 fL (8.0-11.0); Platelet Count 235 10^3/uL (130-400); RBC 4.26 10^6/uL (3.93-5.22); RDW-SD 40.6 fL; WBC 7.45 10^3/uL (4.4-10.8)
[2023-01-07 09:57] LABS: Hemoglobin A1C 5.6 % (<5.7)
[2023-01-07 10:34] LABS: Anion Gap 8.9 mmol/L (3-11); BUN 16 mg/dL (7-18); CO2 27.1 mmol/L (21.0-32.0); CREATININE 0.7 mg/dL (0.55-1.02); Calcium 8.7 mg/dL (8.5-10.1); Calculated LDL 147 mg/dL (<100); Chloride 104 mmol/L (98-107); Cholesterol 205 mg/dL (<200); Glucose 101 mg/dL (74-106); HDL Cholesterol 44 mg/dL (40-60); Potassium 4.2 mmol/L (3.5-5.1); Sodium 140 mmol/L (136-145); Triglyceride 70 mg/dL (<150)
== END 2023-01-07 09:20 | disposition home or self-care (01) ==
LOC: LBO 09:19
PROVIDERS: PCP Nurse Practitioner Family; Visit Provider Nurse Practitioner Family
DX: K21.9 Gastro-esophageal reflux disease without esophagitis (principal); R73.03 Prediabetes; Z00.00 Encounter for general adult medical examination without abnormal findings; Z13.220 Encounter for screening for lipoid disorders; Z13.228 Encounter for screening for other metabolic disorders
CPT/HCPCS: 36415; 80048; 80061; 85027; 83036

== ENCOUNTER → 2023-01-31 02:28 | Outpatient (CLI) | payer BC, MEDICAID, SELFPAY ==
--- NOTE | 2023-01-31 12:46 | DI.MAMMO_ITS ---
Exam(s) MAMMO SCREENING EXAM: MAMMO SCREENING CLINICAL HISTORY: SCREENING FOR BREAST CANCER Z12.39 Z12.31 TECHNIQUE: Mammograms were interpreted according to the usual protocol including computer analysis w [employer] CAD system, tomosynthesis and C-view imaging. COMPARISON: 2013 through 2021 FINDINGS: The breasts are composed of scattered fibroglandular densities, Breast Density category B. No suspicious masses or suspicious microcalcifications are seen. No skin thickening or abnormal axillary lymph nodes are seen. There has been no significant change from prior exams. IMPRESSION: BI-RADS Category 1, Negative mammogram Yearly screening mammography is recommended. Breast Density - Category B, scattered fibroglandular densities. A negative radiographic report should not delay biopsy if a dominant or clinically suspicious mass is present. Up to ten percent of cancers are not identified on mammography. A negative report may reinforce clinical impression. Adenosis and dense breasts may obscure an underlying neoplasm. False positive reports average 6 to 10%. Patient will receive a letter notifying them of these results.
== END ==
PROVIDERS: PCP Nurse Practitioner Family; Visit Provider Nurse Practitioner Family
DX: Z12.31 Encounter for screening mammogram for malignant neoplasm of breast (principal)
CPT/HCPCS: 77063; 77067

== ENCOUNTER 2023-08-15 20:42 | Outpatient (REF) | payer BC, SELFPAY | END 2023-08-15 20:43 | disposition home or self-care (01) | LOC: NCHCN 20:42 | PROVIDERS: PCP Nurse Practitioner Family; Visit Provider Nurse Practitioner Family | DX: R30.0 Dysuria (principal); N39.0 Urinary tract infection, site not specified | CPT/HCPCS: 87086; 87480; 87510; 87660 ==

== ENCOUNTER 2024-03-01 14:42 | Outpatient (CLI) | payer BC, SELFPAY ==
--- NOTE | 2024-03-01 16:39 | DI.RAD_ITS ---
Exam(s) XR CERVICAL SPINE COMP 4-5V EXAM: XR CERVICAL SPINE COMP 4-5V CLINICAL HISTORY: reports ? bone chip seen on [facility] image in past, neck pain, cervicalgia,M54.2. TECHNIQUE: 2D digital imaging was performed. COMPARISON: No exams were available for comparison FINDINGS: Six views No evidence of fracture nor listhesis nor disc space narrowing. No offset of the spinal laminar line . Old untoward and C1 arch appear unremarkable. On the oblique views there are tiny Luschka joint osteophytes at C5-6 level, doubtfully causing an el ement of foraminal stenosis. There is mild degenerative change in mid level facet joints. There are no cervical ribs. No loss of the normal cervical curvature. IMPRESSION: Mild findings as above. DATA REPOSITORY: RADIATION DOSE DELIVERED:
== END 2024-03-01 15:02 ==
LOC: DI 14:43
PROVIDERS: PCP Nurse Practitioner Family; Visit Provider Nurse Practitioner Family
DX: M54.2 Cervicalgia (principal)
CPT/HCPCS: 72050

== ENCOUNTER 2024-03-19 01:33 | Outpatient (CLI) | payer BC, SELFPAY ==
--- NOTE | 2024-03-19 09:30 | DI.MRI_ITS ---
Exam(s) MR CERVICAL SPINE WO EXAM: MR CERVICAL SPINE WO CLINICAL HISTORY: head dropping forward randomly, weakness,neck pain, m54.2 TECHNIQUE: Multiplanar multisequence MRI of the cervical spine was performed without intravenous con trast. COMPARISON: CR XR CERVICAL SPINE COMP 4-5V from 03/01/2024 FINDINGS: BONES: Vertebral body heights are maintained. Alignment is normal. Bone marrow signal intensity is wi thin normal limits. CERVICAL CORD: Craniovertebral junction is unremarkable. The cervical cord is normal size and signal intensity. SOFT TISSUES: Unremarkable. C2-3: No disc herniation or bulge is identified. No evidence of neural foraminal narrowing. No signi ficant central canal stenosis. C3-4: No disc herniation or bulge is identified. Small endplate osteophytes eccentric toward the lef t. Left-sided facet degenerative changes causing moderate neural foraminal narrowing. No significant central canal stenosis. C4-5: No disc herniation or bulge is identified. Small endplate osteophytes eccentric toward the lef t. Facet degenerative changes on the left encroaching in the neural foramen, causing moderate leftne ural foraminal narrowing. No significant central canal stenosis. C5-6: No disc herniation or bulge is identified. Small endplate osteophytes. Mild right neural fora vaishnavi narrowing. No significant central canal stenosis. C6-7: No disc herniation or bulge is identified. No evidence of neural foraminal narrowing. No signif icant central canal stenosis. C7-T1: No disc herniation or bulge is identified. No evidence of neural foraminal narrowing. No signi ficant central canal stenosis. IMPRESSION: Degenerative changes of the facet joints and small uncovertebral joint osteophytes combine to produce moderate neural foraminal narrowing on the left at C3-4 and C4-5 and mild neural foraminal narrowing on the right at C5-6. No evidence of disc herniation or central canal stenosis. DATA REPOSITORY:
== END 2024-03-19 01:53 ==
LOC: DI 01:33
PROVIDERS: PCP Nurse Practitioner Family; Visit Provider Nurse Practitioner Family
DX: M48.02 Spinal stenosis, cervical region (principal)
CPT/HCPCS: 72141

== ENCOUNTER 2024-06-01 14:05 | Outpatient (CLI) | payer BC, SELFPAY ==
--- NOTE | 2024-06-01 12:51 | DI.RAD_ITS ---
Exam(s) XR CHEST 2V PA LATERAL EXAM: XR CHEST 2V PA LATERAL CLINICAL HISTORY: J40 Bronchitis, Wheezing, r/o pneumonia TECHNIQUE: 2D digital imaging was performed. Two views. COMPARISON: No exams were available for comparison FINDINGS: HEART: Normal size. Aorta: Not dilated. PULMONARY VASCULATURE: Normal. MEDIASTINUM: Unremarkable. LUNGS: Clear. PLEURAL SPACE: No pleural effusion or pneumothorax. BONE:Unremarkable for age. SOFT TISSUES: Unremarkable. IMPRESSION: No acute abnormality. DATA REPOSITORY: RADIATION DOSE DELIVERED:
== END 2024-06-01 14:25 ==
PROVIDERS: PCP Nurse Practitioner Family; Visit Provider Family Medicine
DX: J40 Bronchitis, not specified as acute or chronic (principal)
CPT/HCPCS: 71046

== ENCOUNTER 2024-06-21 15:44 | Outpatient (CLI) | payer BC, SELFPAY ==
--- NOTE | 2024-06-21 15:45 | RT.EKG_ITS ---
APPROVED REPORT Exam: Resting ECG Reason for Exam: Preop EKG testing Patient Location: O HR:94 bpm ECG Measurements Heart Rate 94 AXIS MT 125 P 259 QRSd 109 QRS -14 QT 377 T 10 QTc 472 Conclusion Sinus or ectopic atrial rhythm...P axis (-45,135) Poor R wave progression
== END 2024-06-21 15:45 | disposition home or self-care (01) ==
PROVIDERS: PCP Nurse Practitioner Family; Visit Provider Emergency Medicine
DX: Z01.818 Encounter for other preprocedural examination (principal)
CPT/HCPCS: 93010

== ENCOUNTER 2024-06-22 00:45 | Outpatient (CLI) | payer BC, SELFPAY ==
--- NOTE | 2024-06-22 12:07 | DI.MAMMO_ITS ---
Exam(s) MAMMO SCREENING EXAM: MAMMO SCREENING CLINICAL HISTORY: screening,Z12.39 TECHNIQUE: Mammograms were interpreted according to the usual protocol including computer analysis w [employer] CAD system, tomosynthesis and C-view imaging. COMPARISON: 2015 through 2022 FINDINGS: The breasts are composed of scattered fibroglandular densities, Breast Density category B. No suspicious masses or suspicious microcalcifications are seen. No skin thickening or abnormal axillary lymph nodes are seen. There has been no significant change from prior exams. IMPRESSION: BI-RADS Category 1, Negative mammogram Yearly screening mammography is recommended. Breast Density - Category B, scattered fibroglandular densities. A negative radiographic report should not delay biopsy if a dominant or clinically suspicious mass is present. Up to ten percent of cancers are not identified on mammography. A negative report may reinforce clinical impression. Adenosis and dense breasts may obscure an underlying neoplasm. False positive reports average 6 to 10%. Patient will receive a letter notifying them of these results.
== END 2024-06-22 01:05 ==
LOC: DI 00:45
PROVIDERS: PCP Nurse Practitioner Family; Visit Provider Nurse Practitioner Family
DX: Z12.31 Encounter for screening mammogram for malignant neoplasm of breast (principal); R92.323 Mammographic fibroglandular density, bilateral breasts
CPT/HCPCS: 77063; 77067

== ENCOUNTER 2024-08-03 20:45 | Emergency (ER) | payer BC, SELFPAY ==
--- NOTE | 2024-08-03 20:45 | DI.RAD_ITS ---
Exam(s) XR HAND RT COMPLETE XR WRIST RT COMPLETE EXAM: XR WRIST RT COMPLETE CLINICAL HISTORY: trauma. TECHNIQUE: 2D digital imaging was performed. Three views of the wrist and hand. COMPARISON: CR,XR XR HAND RT COMPLETE from 08/03/2024 FINDINGS: BONES: No acute fracture is present. No bony destructive lesion is seen. JOINTS: The carpal bones are normally aligned. Moderate degenerative changes at the scaphoid trapez ium trapezoid joints. Mild degenerative changes of the interphalangeal joints of the fingers. SOFT TISSUE: Normal. IMPRESSION: No acute abnormality. DATA REPOSITORY: RADIATION DOSE DELIVERED:
[2024-08-03 20:46] VITALS: BP 167/93; PULSE 106; RESP 20; TEMP 36.7; O2SAT 98
--- NOTE | 2024-08-03 20:53 | ED.GENADUL_ITS ---
Discharge Plan Disposition Patient Disposition: Home Condition: Good Discharge Details Clinical Impression: Contusion of hand, Wrist sprain Primary Care Provider: Katharina Delatorre ED Provider: Sam Markhams and New Rx's Prescriptions: Continued multivitamin Tablet 1 tab PO DAILY acetaminophen 500 mg tablet 1,000 mg PO TID PRN (Reason: Neck pain) Changed ibuprofen 200 mg tablet 600 mg PO Q8H PRN (Reason: Pain) Qty: 0 0RF Discharge Instructions Additional Instructions: You were seen in the ED for right hand and wrist pain after punching objects out of anger. No evidence of fracture or dislocation on x-ray. You may use the splint for comfort care and keep your hand elevated, ice off and use ibuprofen for pain. Follow-up with primary care next if not improving. Return to the ED for significant worsening pain, numbness or weakness to the hand, other concerns. Referrals: Katharina Delatorre APRN [Primary Care Provider] - [facility] General Mode of arrival: ambulatory . Date/Time Provider Initiated Documentation: 08/03/24 20:51 . Limitations to Documentation: no limitations . Information obtained by: patient and RN notes reviewed . HPI Narrative: Patient is right-hand dominant female presents to ED with right hand and wrist pain. Patient became angry at home. She punched a couple of objects including a book in a barrel. She now has pain in the lateral aspect of her right hand and wrist. Denies any other injury. Is much more calm at this time. Denies any SI or HI. Is here with her son who corroborates her story and does not have any concerns for her safety. Related Data Home Medications ?Medication ?Instructions ?Recorded ?Confirmed multivitamin 1 tab PO DAILY 02/23/24 08/03/24 acetaminophen 500 mg tablet 1,000 mg PO TID PRN Neck pain 03/15/24 08/03/24 ibuprofen 200 mg tablet 600 mg (3 x 200 mg) PO Q8H PRN 08/03/24 08/03/24 Pain #0 tabs Previous Rx's ?Medication ?Instructions ?Recorded ibuprofen 200 mg tablet 600 mg (3 x 200 mg) PO Q8H PRN 08/03/24 Pain #0 tabs Allergies Allergy/AdvReac Type Severity Reaction Status Date / Time meperidine HCl (From Demerol) Allergy Intermediate Wheezing Verified 08/03/24 20:52 cephalexin monohydrate (From Allergy Mild Skin Rash Verified 08/03/24 20:52 Keflex) amoxicillin Allergy Rash Verified 08/03/24 20:52 Fish Containing Products Allergy Anaphylaxis Verified 08/03/24 20:52 codeine (Codeine) AdvReac Mild Nausea Verified 08/03/24 20:52 morphine AdvReac Mild Nausea Verified 08/03/24 20:52 General Stated Complaint: Orthopedic FEDERICO: 4 Exam Narrative Exam Narrative: Const: WDWN female in NAD. VS per triage. HEENT: NC/AT. Normal facial exam. Neck: Supple. Trachea midline. Lungs: Normal respiratory effort. Neuro: A+O x 3. Normal speech, mentation, gait. Cranial nerves II - XII grossly intact. No gross motor or sensory deficit. Ext: Right had with some mild bruising/swelling over the 4th and 5th metacar pal. Some decreased range of motion because of pain. Some tenderness over the ulnar aspect of the wrist as well. Decreased range of motion involving hand and wrist because of pain. Sensory intact. Cap refill intact. Course Vital Signs Vital signs: Vital Signs Temperature 98.0 F 08/03/24 20:46 Pulse 106 H 08/03/24 20:46 Respiratory Rate 20 08/03/24 20:46 Blood Pressure 167/93 H 08/03/24 20:46 Pulse Oximetry 98 08/03/24 20:46 Temperature 98.0 F 08/03/24 20:46 Temperature Source Oral 08/03/24 20:46 Pulse 106 H 08/03/24 20:46 Respiratory Rate 20 08/03/24 20:46 Blood Pressure 167/93 H 08/03/24 20:46 Blood Pressure Position Sitting 08/03/24 20:46 Pulse Oximetry 98 08/03/24 20:46 Oxygen Delivery Method Room Air 08/03/24 20:46 Oxygen Flow Rate 0 08/03/24 20:46 Pain Level 8 08/03/24 20:46 Medical Decision Making Patient presenting with right hand and wrist pain after punching objects out of anger. Will give ibuprofen and apply ice. X-rays of the hand and wrist ordered. Patient currently really calm and cooperative and story is cooperated by her son who is here with her, no safety concerns. X-ray of the right wrist and hand with no acute fracture or dislocation per my read. Preliminary radiology read pending. Patient placed in a Velcro wrist splint for comfort. Recommend elevation, ice, ibuprofen over the weekend. Follow-up with primary care next week as needed. Return precautions provided. Imaging Data Radiologic Study: Attestation: I personally reviewed and interpreted this imaging study as follows: Imaging: X-Ray My impression: see MDM Quality:SDOH Health Related Social Needs: Health related social needs problems related to housin g/economic circumstances (Z59.89) PFSH All Active Problems (Updated 08/03/24 @ 21:41 by Sam Markham MD) Wrist sprain (Acute) Contusion of hand (Acute) Asthma exacerbation (Acute) Sinusitis, acute (Acute) Otitis media (Acute) Breast cancer screening (Acute) Preventative health care (Acute) Muscle pain (Acute) Erythematous rash (Acute) Pain in left lower leg (Acute) Menopause present (Acute) Acquired talipes planus (Acute) Pain in left foot (Acute) Bursitis of right shoulder (Acute) Screening for malignant neoplasm of breast (Acute) Family history of substance dependence (Acute) Therapeutic drug monitoring (Acute) Presence of total knee joint prosthesis (Acute) Left lower quadrant pain (Acute) Lymphadenopathy (Acute) Localized edema (Acute) Hernia of anterior abdominal wall (Acute) Chronic gastritis (Acute) Gastroesophageal reflux disease without esophagitis (Acute) Herpesviral vesicular dermatitis (Acute) Neck pain (Acute) Dyspnea (Acute) Asthma (Chronic) Hx of colonoscopy (Chronic) Hx of knee surgery (Acute) History of endometrial ablation (Acute) History of tonsillectomy and adenoidectomy (Acute) Ventral hernia (Acute) Herpes labialis (Acute) Dysuria-frequency syndrome (Acute) Abdominal pain (Acute) Ganglion cyst (Acute) Heart murmur (Acute) Phlegm in throat (Acute) Globus sensation (Acute) Xerostomia (Acute) Medical History History of severe acute respiratory syndrome coronavirus 2 (SARS-CoV-2) disease History of respiratory system disease Obesity Osteoarthritis GERD (gastroesophageal reflux disease) Prediabetes Surgical History Hx of left knee surgery Hx of right knee surgery S/P endometrial ablation Hx of adenoidectomy Hx of tubal ligation Hx of eye surgery History of tonsillectomy History of bilateral knee replacement Hx of cholecystectomy Family History (Updated 06/05/24 @ 09:27 by Bonnie Madrid RN) Father Substance use disorder Alcohol use disorder Mother Dementia Heart disease Hypertension Brother Alcohol use disorder Substance use disorder Heart disease Sister Anxiety Alcohol use disorder Other Crohn's disease Social History Smoking/Tobacco Use Status: Never Smoking risk assessment performed?: Yes Alcohol Intake: current Alcohol Intake frequency: holidays/special occasions only Drug use: Never Substance use type: does not use Adopted: No Caregiver/Support person: No Foster care: No Household members: spouse Housing: house Number of Children: 4 number of grandchildren: 4 Communication Needs: Corrective Lenses Education Level: high school Do you need help understanding health information?: Never current occupation: Chemical Dependency Professional/ [employer] Pets and animals: Yes (3) Pets and animals: cat(s) Sexually active: No Do you think of yourself as: straight/heterosexual Current gender identity: female What is your relationship status?: How often do you talk on the phone with friends or family?: decline to answer How often do you get together with friends or relatives?: decline to answer Do you belong to any clubs or organized social groups?: no Panel score (0-1 are the most socially isolated patients): 1 What type of physical activity do you participate in: other Details: When I can Juju/Buddhism: Pentecostalism Seatbelt use: always Helmet use: Yes Drive intox or ride w/intox dumpcart driver: No Do you feel safe at home: Yes Do you feel safe in your relationship?: Yes
[2024-08-03] MEDS: Ibuprofen 600 MG TAB PO (21:02)
--- NOTE | 2024-08-03 21:15 | NUR.NOTE ---
PT transported to [facility] Nursing Note:
[2024-08-03 21:54] VITALS: PULSE 90; RESP 18; O2SAT 96
--- NOTE | 2024-08-03 21:54 | NUR.NOTE ---
splint applied to PTs R wrist. PMS intact. PT tolerated well. Nursing Note:
--- NOTE | 2024-08-03 22:20 | DI.VRAD_ITS ---
PROCEDURE INFORMATION: Exam: XR Right Wrist Exam date and time: 08/03/2024 9:15 PM Age: 54 years old Clinical indication: Injury or trauma TECHNIQUE: Imaging protocol: Radiologic exam of the right wrist. Views: 3 or more views. COMPARISON: CR XR HAND RT COMPLETE 08/03/2024 9:16 PM FINDINGS: Bones/joints: No acute fracture. Mild osteoarthritic changes identified between the scaphoid bone and trapezium bone. Small radiopacity identified adjacent to the hamate bone likely chondrocalcinosis and not chip fracture. Soft tissues: Normal. IMPRESSION: No acute fracture identified. Dictated and Authenticated by: Thomas Morrison MD. Orderin Rashi Vargas MD
--- NOTE | 2024-08-03 22:21 | DI.VRAD_ITS ---
PROCEDURE INFORMATION: Exam: XR Right Hand Exam date and time: 08/03/2024 9:16 PM Age: 54 years old Clinical indication: Pain; Hand and wrist; Right TECHNIQUE: Imaging protocol: Radiologic exam of the right hand. Views: 3 or more views. COMPARISON: CR XR WRIST RT COMPLETE 08/03/2024 9:15 PM FINDINGS: Bones/joints: No acute fracture. No dislocation. Soft tissues: Normal. IMPRESSION: No acute fracture. Dictated and Authenticated by: Thomas Morrison MD. Orderin Rashi Vargas MD
== END 2024-08-03 21:55 | disposition home or self-care (01) ==
PROVIDERS: Emergency Provider Emergency Medicine; PCP Nurse Practitioner Family
DX: S63.501A Unspecified sprain of right wrist, initial encounter (principal); S60.221A Contusion of right hand, initial encounter; W22.8XXA Striking against or struck by other objects, initial encounter; Z59.89 Other problems related to housing and economic circumstances
CPT/HCPCS: 29125; 99284; 73110; 73130; 99283

== ENCOUNTER 2024-09-03 08:38 | Outpatient (CLI) | payer BC, SELFPAY ==
--- NOTE | 2024-09-03 06:00 | DI.RAD_ITS ---
Exam(s) XR PAIN CLINIC CERVICAL SP 2V EXAM: XR PAIN CLINIC CERVICAL SP 2V CLINICAL HISTORY: DX: Cervical Radiculopathy TECHNIQUE: 2D and realtime digital imaging was performed. CONTRAST MATERIAL: Refer to procedure report. COMPARISON: No exams were available for comparison FINDINGS: Fluoroscopy was provided for Dr. Balderas during the performance of a cervical epidural steroid injec tion. Please refer to the procedure report for complete details. Ka,r=2.8 mGy IMPRESSION: RADIATION DOSE DELIVERED: 0.0 0.0 0
[2024-09-03 08:51] VITALS: BP 144/77; PULSE 94; RESP 20; TEMP 36.7; O2SAT 98
--- NOTE | 2024-09-03 09:00 | PDOC.PAIN ---
Date of service: 09/03/24 Time of Service: 09:48 Pain Managment Procedure Note Procedure Note Procedure Note: CERVICAL EPIDURAL STEROID INJECTION ? Pre-procedure Diagnosis: M54.12- Radiculopathy, cervical region ? Post-procedure Diagnosis:? The same as above ? Sedation:? none ? Medication: Depo-Medrol 80 mg, Omnipaque 1 mL ? Estimated blood loss:? less than 2 cc ? Surgeon:? Esdras Balderas MD Comment: Patient has cervical foraminal stenosis at C3-4 and 4?5 on the left ? Procedure Detail:? The procedure and potential risks were explained to the patient and informed written consent was obtained. The patient was escorted to the procedure room and placed in the prone position. Pillows were utilized for proper positioning and comfort. Time out was performed in the procedure room with nursing staff confirming the patient's identity, procedure to be performed, allergies, and any blood thinning or anti-platelet medications.? The patient's neck and upper back was prepped with ChloraPrep and draped in a sterile fashion. Sterile technique was maintained throughout the procedure.? Sterile gloves were used, a face mask was worn, and new single dose vials of all medications were used with the top being swabbed with alcohol and given time to dry prior to withdrawal of medication. Lidocaine 1% was used to anesthetize the skin. Using a 25-gauge 1.5 inch needle, 1% lidocaine was instilled into the superficial soft tissue overlying the targeted area to provide local anesthesia. With fluoroscopic guidance, a 17 -gauge Tuohy needle was advanced toward the interlaminar space of C7-T1. The needle was then advance through the ligamentum flavum and into the posterior epidural space using the loss of resistance technique. Correct needle placement was confirmed through review of the AP and contralateral oblique fluoroscopic views. A 19-gauge Arrow catheter was threaded cephalad to the Left C4 Following negative aspiration, one cc of Omnipaque 240 contrast was injected which confirmed good flow throughout the epidural space and no evidence of vascular flow or flow into adjacent compartments. Next, following negative aspiration, 1 cc's of normal saline and 80mg of Depo-Medrol was injected. The needle and catheter were gently removed intact. The patient tolerated the procedure well and was transported to the recovery area for observation and discharge instructions. Permanent images saved and recorded. Plan:? Follow up PRN. PAIN PRE PROCEDURE 06/25 POST PROCEDURE COMMENT: Could repeat as needed or consider reevaluation by Dr. Millan Coding Conscious Sedation used for procedure: No CPT Codes: Inj Spine C/T w/Imaging - 30910 ([id number] ~G) Additional Codes: Date of Service (70730) Date of service: 09/03/24
[2024-09-03 09:38] VITALS: PULSE 95; O2SAT 100
[2024-09-03 09:40] VITALS: PULSE 90; O2SAT 100
[2024-09-03] MEDS: Omnipaque 240 MG/ML 50 ML BTL IJ (09:47)
[2024-09-03] MEDS: methylPREDNISolone ACETATE 40 MG/ML VIAL IJ (09:55)
[2024-09-03] MEDS: Epidural Tray 1 EACH MC (10:00)
== END 2024-09-03 08:39 | disposition home or self-care (01) ==
LOC: PC 08:39
PROVIDERS: PCP Nurse Practitioner Family; Visit Provider Anesthesiology Pain Medicine
DX: M54.12 Radiculopathy, cervical region (principal)
CPT/HCPCS: 62321; 72040; J1010; Q9967

== ENCOUNTER 2024-12-09 04:31 | Emergency (ER) | payer OTHER, SELFPAY ==
[2024-12-09] VITALS (19 sets, daily range): BP systolic 97–146; BP diastolic 64–96; PULSE 47–97; RESP 11–25; TEMP 36.4; O2SAT 85–99
--- NOTE | 2024-12-09 04:45 | DI.CT_ITS ---
Exam(s) CT ABDOMEN PELVIS W EXAM: CT ABDOMEN PELVIS W CLINICAL HISTORY: ruq and rlq pain, eval for appe. TECHNIQUE: Imaging Protocol: Axial computed tomography images with coronal and sagittal reformatted images were created and reviewed CONTRAST MATERIAL: Intravenous: Omnipaque 350 Contrast volume:100 ml Oral: no COMPARISON: CT CT SPINE CERVICAL WO CONTRAST from 03/20/2022 FINDINGS: ABDOMEN and PELVIS: Lung Bases: No acute findings. Liver: Enlarged. Hepatic steatosis. No suspicious mass. Gallbladder and biliary tract: Cholecystectomy. No biliary dilation. Pancreas: Normal density. No abnormal calcifications or inflammatory process. No evidence of mass. Spleen: Enlarged 15.5 cm in length. Kidneys: Normal size, contour and axis. No radiodense stones. No obstructive uropathy. No suspicious masses seen. Adrenal glands: No masses seen. Vasculature: Abdominal aorta non-dilated. Soft tissues: Unremarkable. Bladder: No gross wall thickening. No calculi.No focal mass. Bowel: No obstruction. Sigmoid diverticulosis. No evidence of diverticulitis. No evidence of appendicitis. Moderate quantity of stool. Peritoneal cavity: No ascites. No focal collection. No mesenteric inflammatory response. No free air. Bones: Degenerative disc changes at L4-5. Reproductive organs: Small uterine fibroids. Tubal ligation. Lymph nodes: No pathologically enlarged lymph nodes. IMPRESSION:: No acute abnormality in the abdomen or pelvis. The preliminary [facility] report was reviewed. RADIATION DOSE DELIVERED: Total DLP DATA REPOSITORY: All CT scans at this facility are submitted to the National Radiology Data Registry (NRDR) Dose Index Registry (DIR) with the [employer] (ACR). RADIATION OPTIMIZATION: All CT scans at this facility use at least one of these dose optimization techniques: automated exposure control; mA and/or kV adjustment per patient size (includes targeted exams where dose is matched to clinical indication); or iterative reconstruction.
[2024-12-09 05:07] LABS: Abs Immature Grans 0.02 10^3/uL (0.0-0.06); HCT 37.8 % (36.0-46.0); HGB 12.7 g/dL (11.2-15.7); Immature Grans % 0.2 %; MCH 28.3 pg (27.0-33.0); MCHC 33.6 % (32.0-36.0); MCV 84 fL (80-95); MPV 10.5 fL (8.0-11.0); Platelet Count 285 10^3/uL (130-400); RBC 4.48 10^6/uL (3.93-5.22); RDW 12.9 % (11.7-14.6); RDW-SD 39.8 fL; WBC 9.80 10^3/uL (4.4-10.8)
[2024-12-09] MEDS: Normal Saline 500 ML IV (05:08)
[2024-12-09] MEDS: Ketorolac 15 MG/ML VIAL IVP (05:08)
[2024-12-09] MEDS: Ondansetron 4 MG/2 ML VIAL IVP (05:08)
[2024-12-09 05:26] LABS: ALT 40 U/L (14-59); AST 22 U/L (15-37); Albumin 3.8 g/dL (3.4-5.0); Alkaline Phosphatase 127 U/L (46-116); Anion Gap 10.8 mmol/L (3-11); BUN 20 mg/dL (7-18); Bilirubin, Total 0.4 mg/dL (0.2-1.0); CO2 26.2 mmol/L (21.0-32.0); Calcium 9.1 mg/dL (8.5-10.1); Chloride 104 mmol/L (98-107); Estimated GFR 87.50 (mL/min/1.73m2); Glucose 133 mg/dL (74-106); Lipase 40 U/L (<78); Potassium 4.1 mmol/L (3.5-5.1); Sodium 141 mmol/L (136-145); Total Protein 7.2 g/dL (6.4-8.2); Troponin I 5 ng/L (<or=51)
[2024-12-09 05:38] LABS: NT-proBNP 75 pg/mL (<300)
--- NOTE | 2024-12-09 05:49 | W.ED.GENAD ---
Discharge Plan Discharge Details Chief Complaint: Abd Prob Clinical Impression: Right sided abdominal pain Primary Care Provider: Katharina Delatorre ED Provider: Higinio Us Home Meds and New Rx's Prescriptions: No Action multivitamin Tablet 1 tab PO DAILY acetaminophen 500 mg tablet 1,000 mg PO TID PRN (Reason: Neck pain) albuterol sulfate 90 mcg/actuation HFA aerosol inhaler 2 puff inhalation Q6H PRN (Reason: shortness of breath or wheezing) Qty: 8.5 0RF ibuprofen 200 mg tablet 600 mg PO Q8H PRN (Reason: Pain) Qty: 0 0RF esomeprazole magnesium 20 mg capsule,delayed release(DR/EC) 20 mg PO DAILY HPI General Date/Time Provider Initiated Documentation: 12/09/24 04:45. HPI Narrative: 54-year-old female with no significant past medical history except for cholecystectomy, presents today for evaluation of abdominal pain. Patient states that about an hour or so ago she woke up with significant/severe right upper quadrant and epigastric abdominal pain. By the time she arrived it was starting to diminish, she had some burps which also improved her symptoms. At this time it is mildly present compared to before. She denies any vomiting but does admit to nausea. She denies any diarrhea. She did admit to eating a meat sandwich an hour or so before bed which is very atypical for her. She denies any other complaints at this time. Related Data Home Medications ?Medication ?Instructions ?Recorded ?Confirmed multivitamin 1 tab PO DAILY 02/23/24 10/09/24 acetaminophen 500 mg tablet 1,000 mg PO TID PRN Neck pain 03/15/24 10/09/24 ibuprofen 200 mg tablet 600 mg (3 x 200 mg) PO Q8H PRN 08/03/24 10/09/24 Pain #0 tabs esomeprazole magnesium 20 mg 20 mg PO DAILY gerd 09/03/24 10/09/24 capsule,delayed release albuterol sulfate 90 mcg/actuation 2 puff inhalation Q6H PRN 09/24/24 10/09/24 aerosol inhaler shortness of breath or wheezing #8.5 grams Previous Rx's ?Medication ?Instructions ?Recorded ibuprofen 200 mg tablet 600 mg (3 x 200 mg) PO Q8H PRN 08/03/24 Pain #0 tabs albuterol sulfate 90 mcg/actuation 2 puff inhalation Q6H PRN 09/24/24 aerosol inhaler shortness of breath or wheezing #8.5 grams Allergies Allergy/AdvReac Type Severity Reaction Status Date / Time meperidine HCl (From Demerol) Allergy Intermediate Wheezing Verified 10/09/24 11:01 cephalexin monohydrate (From Allergy Mild Skin Rash Verified 10/09/24 11:01 Keflex) amoxicillin Allergy Rash Verified 10/09/24 11:01 codeine (Codeine) AdvReac Mild Nausea Verified 10/09/24 11:01 morphine AdvReac Mild Nausea Verified 10/09/24 11:01 General Stated Complaint: Abd Prob FEDER[place]: 3 Exam Narrative Exam Narrative: 1.Const: Well-nourished, Well-developed, appearing stated age 2.Eyes: PERRL, no conjunctival injection, and symmetrical lids. 3.ENT: Atraumatic external nose and ears. Moist MM. Neck: Symmetric, trachea midline, No thyromegaly. 4.CVS: +S1/S2, Peripheral pulses 2+ and equal in all extremities. Brisk capillary refill in all extremities. 5.RESP: Unlabored respiratory effort. Clear to auscultation bilaterally. No wheezes rales or rhonchi 6.GI: Soft, nondistended. Mild tenderness in the right upper quadrant, right mid and right lower quadrant. Negative Walden sign. No left-sided tenderness. 7.MSK: Normocephalic/Atraumatic, Extremities w/o deformity or ttp No cyanosis or clubbing, Normal movement of all extremities 8.Skin: Warm, Dry. No rashes or lesions. 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 Sensation grossly intact, no focal neurologic deficits. 10.Psych: (AAO) x3. Appropriate mood and affect Course Vital Signs Vital signs: Vital Signs Temperature 36.4 C L 12/09/24 04:47 Pulse 97 H 12/09/24 04:47 Respiratory Rate 25 H 12/09/24 04:47 Blood Pressure 146/96 H 12/09/24 04:47 Pulse Oximetry 98 12/09/24 04:47 Temperature 36.4 C L 12/09/24 04:47 Temperature Source Temporal Artery Scan 12/09/24 04:47 Pulse 97 H 12/09/24 04:47 Respiratory Rate 25 H 12/09/24 04:47 Blood Pressure 146/96 H 12/09/24 04:47 Blood Pressure Position Sitting 12/09/24 04:47 Pulse Oximetry 98 12/09/24 04:47 Oxygen Delivery Method Room Air 12/09/24 04:47 Oxygen Flow Rate 0 12/09/24 04:47 Pain Level 9 12/09/24 04:47 Lab/Test Results Lab/Test Results: Laboratory Tests Range/Units 12/09/24 04:57 WBC (4.4-10.8) 10^3/uL 9.80 RBC (3.93-5.22) 10^6/uL 4.48 Hgb (11.2-15.7) g/dL 12.7 Hct (36.0-46.0) % 37.8 MCV (80-95) fL 84 MCH (27.0-33.0) pg 28.3 MCHC (32.0-36.0) % 33.6 RDW (11.7-14.6) % 12.9 Plt Count (130-400) 10^3/uL 285 MPV (8.0-11.0) fL 10.5 Immature Gran % % 0.2 Neutrophils % % 55.5 Lymphocytes % % 35.2 Monocytes % % 6.4 Eosinophils % % 2.0 Basophils % % 0.7 Nucleated RBC % (0.0-0.3) % 0.0 Absolute Neutrophils (1.2-6.7) 10^3/uL 5.43 Absolute Lymphocytes (1.2-3.4) 10^3/uL 3.45 H Absolute Monocytes (0.1-0.8) 10^3/uL 0.63 Absolute Eosinophils (0.0-0.7) 10^3/uL 0.20 Absolute Basophils (0.0-0.2) 10^3/uL 0.07 Sodium (136-145) mmol/L 141 Potassium (3.5-5.1) mmol/L 4.1 Chloride (98-107) mmol/L 104 Carbon Dioxide (21.0-32.0) mmol/L 26.2 Anion Gap (3-11) mmol/L 10.8 BUN (7-18) mg/dL 20 H Creatinine (0.55-1.02) mg/dL 0.8 Est GFR (CKD-EPI 2020) (mL/min/1.73m2) 87.50 Glucose (74-106) mg/dL 133 H Calcium (8.5-10.1) mg/dL 9.1 Total Bilirubin (0.2-1.0) mg/dL 0.4 AST (15-37) U/L 22 ALT (14-59) U/L 40 Alkaline Phosphatase (46-116) U/L 127 H Troponin I (<or=51) ng/L 5 NT-Pro-B Natriuret Pep (<300) pg/mL 75 Total Protein (6.4-8.2) g/dL 7.2 Albumin (3.4-5.0) g/dL 3.8 Lipase (<78) U/L 40 Medical Decision Making 54-year-old female with no significant past medical history except for cholecystectomy, presents today for evaluation of abdominal pain. Patient states that about an hour or so ago she woke up with significant/severe right upper quadrant and epigastric abdominal pain. By the time she arrived it was starting to diminish, she had some burps which also improved her symptoms. At this time it is mildly present compared to before. She denies any vomiting but does admit to nausea. She denies any diarrhea. She did admit to eating a meat sandwich an hour or so before bed which is very atypical for her. She denies any other complaints at this time. Exam demonstrates well-appearing female, mild right-sided abdominal tenderness. No guarding or rebound or signs of an acute surgical abdomen. Differential includes adhesion, diverticulitis, urolithiasis, less likely appendicitis. Will get CT imaging, monitor closely and reassess. Differential also includes cardiac etiology, albeit much less likely. EKG shows no STEMI. 7:52 AM Laboratory workup has returned, no significant white count bandemia or left shift. Electrolytes stable. BUN slightly elevated suggestive of mild dehydration in comparison to the creatinine. Troponins are normal, proBNP is normal suggesting no signs of heart strain or congestive heart failure. Urinalysis shows no significant abnormalities. She has trace leuk esterase 3-5 WBCs, but she has no dysuria or frequency. No evidence to suggest infection. Will wait for culture results. Patient's abdominal pain is notably improved, she does feel slightly bloated, but continues to have no vomiting or diarrhea. Pending CT results at this time. Patient will be signed out to my colleague Dr. Vazquez. Quality:SDOH Health Related Social Needs: Health related social needs house/econ circumstance PFSH All Active Problems (Updated 12/09/24 @ 07:54 by Higinio Us DO) Right sided abdominal pain (Acute) Stress at home (Acute) Cervical spondylosis (Acute) Radiculitis, cervical (Acute) Asthma exacerbation (Acute) Sinusitis, acute (Acute) Otitis media (Acute) Breast cancer screening (Acute) Preventative health care (Acute) Muscle pain (Acute) Erythematous rash (Acute) Pain in left lower leg (Acute) Menopause present (Acute) Acquired talipes planus (Acute) Pain in left foot (Acute) Bursitis of right shoulder (Acute) Screening for malignant neoplasm of breast (Acute) Family history of substance dependence (Acute) Therapeutic drug monitoring (Acute) Presence of total knee joint prosthesis (Acute) Left lower quadrant pain (Acute) Lymphadenopathy (Acute) Localized edema (Acute) Hernia of anterior abdominal wall (Acute) Chronic gastritis (Acute) Gastroesophageal reflux disease without esophagitis (Acute) Herpesviral vesicular dermatitis (Acute) Neck pain (Acute) Dyspnea (Acute) Asthma (Chronic) Hx of colonoscopy (Chronic) Hx of knee surgery (Acute) History of endometrial ablation (Acute) History of tonsillectomy and adenoidectomy (Acute) Ventral hernia (Acute) Herpes labialis (Acute) Dysuria-frequency syndrome (Acute) Abdominal pain (Acute) Ganglion cyst (Acute) Heart murmur (Acute) Phlegm in throat (Acute) Globus sensation (Acute) Xerostomia (Acute) Medical History History of severe acute respiratory syndrome coronavirus 2 (SARS-CoV-2) disease History of respiratory system disease Obesity Osteoarthritis GERD (gastroesophageal reflux disease) Prediabetes Surgical History Hx of left knee surgery Hx of right knee surgery S/P endometrial ablation Hx of adenoidectomy Hx of tubal ligation Hx of eye surgery History of tonsillectomy History of bilateral knee replacement Hx of cholecystectomy Family History Father Substance use disorder Alcohol use disorder Mother Dementia Heart disease Hypertension Brother Alcohol use disorder Substance use disorder Heart disease Sister Anxiety Alcohol use disorder Other Crohn's disease Social History Smoking/Tobacco Use Status: Never Smoking risk assessment performed?: Yes Alcohol Intake: current Alcohol Intake frequency: holidays/special occasions only Drug use: Never Substance use type: does not use Adopted: No Caregiver/Support person: No Foster care: No Household members: spouse Housing: house Number of Children: 4 number of grandchildren: 4 Communication Needs: Corrective Lenses Education Level: high school Do you need help understanding health information?: Never 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 Pets and animals: Yes (3) Pets and animals: cat(s) Sexually active: No Do you think of yourself as: straight/heterosexual Current gender identity: female What is your relationship status?: How often do you talk on the phone with friends or family?: decline to answer How often do you get together with friends or relatives?: decline to answer Do you belong to any clubs or organized social groups?: no Panel score (0-1 are the most socially isolated patients): 1 What type of physical activity do you participate in: other Details: When I can Juju/Samaritan: Orthodox Seatbelt use: always Helmet use: Yes Drive intox or ride w/intox snaker tractor driver: No Do you feel safe at home: Yes Do you feel safe in your relationship?: Yes
[2024-12-09] MEDS: Normal Saline - Diluent 50 ML VIAL IJ (06:41)
[2024-12-09] MEDS: Omnipaque 350 MG/ML 100 ML BTL IJ (06:42)
[2024-12-09 06:54] LABS: Troponin I 5 ng/L (<or=51)
[2024-12-09 07:35] LABS: Glucose Negative (Negative)
[2024-12-09 07:49] LABS: RBC 0-2 HPF (0-2)
[2024-12-09 07:50] LABS: C & S Indicated? No
--- NOTE | 2024-12-09 08:05 | DI.VRAD_ITS ---
PROCEDURE INFORMATION: Exam: CT Abdomen And Pelvis With Contrast Exam date and time: 12/09/2024 6:29 AM Age: 54 years old Clinical indication: Abdominal pain; Other: Ruq and rlq pain; Additional info: Ruq and rlq pain, eval for appe TECHNIQUE: Imaging protocol: Computed tomography of the abdomen and pelvis with contrast. Contrast material: OMNI 350; Contrast volume: 100 ml; Contrast route: INTRAVENOUS (IV); COMPARISON: CR XR CHEST 2V PA LATERAL 06/01/2024 12:50 PM FINDINGS: Lungs: Unremarkable. Lung bases are clear. Liver: The liver is diffusely low in attenuation, compatible with fatty infiltration. Hepatomegaly Gallbladder and biliary ducts: Cholecystectomy Pancreas: Unremarkable. No ductal dilation. Spleen: splenomegaly Adrenal glands: Normal. No mass. Kidneys and ureters: Bilateral UPJ s Stomach and bowel: Moderate diverticulosis is present in the sigmoid colon. No evidence of diverticulitis. Mildly dilated fluid-filled loops of small bowel in the right lower quadrant Appendix: No evidence of appendicitis. Intraperitoneal space: Unremarkable. No free air. No significant fluid collection. Vasculature: Unremarkable. No abdominal aortic aneurysm. Lymph nodes: Non-specific subcentimeter lymph nodes right lower quadrant mesenteric fat Urinary bladder: Unremarkable as visualized. Reproductive: Fibroid uterus. Tubal ligation Bones/joints: Unremarkable. No acute fracture. Soft tissues: Unremarkable. IMPRESSION: 1. Hepatosplenomegaly 2. Cholecystectomy 3. Non-specific right lower quadrant subcentimeter lymph nodes 4. Possible enteritis Dictated and Authenticated by: Olivia Farrar MD. Orderin Magen Sylvester MD
--- NOTE | 2024-12-09 08:15 | W.EDPROG ---
Date of service: 12/09/24 Time of Service: 08:15 Medical Decision Making Patient signed out to me pending CT which shows no emergent findings. Has evidence of possible enteritis and nonspecific right lower quadrant lymph nodes. She is feeling improved No longer having symptoms. I discussed the CT findings with her and advised she did have some mild enlargement of her spleen which she will let her primary care provider know about I doubt this is the cause of her symptoms. Given reassuring workup I feel she stable for discharge and can follow-up with her PCP if symptoms continue and return precautions given Quality:SDOH Health Related Social Needs: Health related social needs house/econ circumstance Discharge Plan Disposition Patient Disposition: Home Condition: Stable Discharge Details Clinical Impression: Right sided abdominal pain Primary Care Provider: Katharina Delatorre ED Provider: Mustapha Vazquez Home Meds and New Rx's Prescriptions: Continued multivitamin Tablet 1 tab PO DAILY acetaminophen 500 mg tablet 1,000 mg PO TID PRN (Reason: Neck pain) albuterol sulfate 90 mcg/actuation HFA aerosol inhaler 2 puff inhalation Q6H PRN (Reason: shortness of breath or wheezing) Qty: 8.5 0RF ibuprofen 200 mg tablet 600 mg PO Q8H PRN (Reason: Pain) Qty: 0 0RF esomeprazole magnesium 20 mg capsule,delayed release(DR/EC) 20 mg PO DAILY Discharge Instructions Additional Instructions: Your lab work and CAT scan did not show any emergent findings. You did have evidence of mild enlargement of your spleen but this is likely the cause of your pain and is probably been enlarged for a long time. I would recommend letting your primary care provider know when you follow-up with them. If having recurrent symptoms follow-up with your primary care provider within 1 to 2 weeks. Feel significantly more ill or have new symptoms such as persistent vomiting return to the emergency department for reevaluation
[2024-12-09] MEDS: MYLANTA 30 ML, LIDOCAINE 2% VISCOUS UD 15 ML PO (08:35)
== END 2024-12-09 08:40 | disposition home or self-care (01) ==
PROVIDERS: Student in an Organized Health Care Education/Training Program; Emergency Provider Emergency Medicine; PCP Nurse Practitioner Family
DX: R10.13 Epigastric pain (principal); R10.11 Right upper quadrant pain
CPT/HCPCS: 00123; 80053; 83690; 96361; 96374; 96375; 99285; 74177; 81003; 81015; 83880; 84484; 85025; 99284; J1885; J2405; J3490

== ENCOUNTER 2025-04-02 08:31 | Outpatient (CLI) | payer OTHER, SELFPAY ==
[2025-04-02 09:20] LABS: Glucose 112 mg/dL (74-106)
[2025-04-02 14:18] LABS: Hemoglobin A1C 6.1 % (<5.7)
[2025-04-02 15:40] LABS: TSH (W/Ref FT4) 1.63 uIU/mL (0.55-4.78)
[2025-04-02 15:48] LABS: Cholesterol 216 mg/dL (<200); HDL Cholesterol 58 mg/dL (>40)
[2025-04-02 16:23] LABS: Vitamin B12 247 pg/mL (211-911)
== END 2025-04-02 08:32 | disposition home or self-care (01) ==
LOC: LBO 08:31
PROVIDERS: PCP Nurse Practitioner Family; Visit Provider Nurse Practitioner Family
DX: R43.0 Anosmia (principal); R43.2 Parageusia; Z00.00 Encounter for general adult medical examination without abnormal findings
CPT/HCPCS: 36415; 80061; 82947; 82607; 83036; 84443